=== PATIENT | male | born 1935 | race Caucasian/White ===

== ENCOUNTER 2018-04-12 19:11 | Inpatient (IN) ==
--- NOTE | 2018-04-12 19:20 | Emergency Department Note ---
ED Disposition Condition on Discharge: Serious - Critical Care Critical Care Time: Yes Total Critical Care Time: 40 Vital system(s) involved:: Respiratory Failure My critical care processes included: Assessment & monitoring of V/S, Initial and Re-exams, Data Review/Interpretation, Coordinating Care, Medication Orders and management, Documentation <SammyGary mai - Last Filed: 04/12/18 19:59> <Andrei Yepez - Last Filed: 04/12/18 20:30> Clinical Impression: COPD exacerbation Respiratory failure with hypoxia and hypercapnia Qualifiers: Chronicity: acute Qualified Code(s): J96.01 - Acute respiratory failure with hypoxia; J96.02 - Acute respiratory failure with hypercapnia Community acquired pneumonia Qualifiers: Laterality: unspecified laterality Qualified Code(s): J18.9 - Pneumonia, unspecified organism A-fib Qualifiers: Atrial fibrillation type: chronic Qualified Code(s): I48.2 - Chronic atrial fibrillation Disposition: Admitted As Inpatient Referrals: Unruly Lewis [Primary Care Provider] - Attestation: On 04/12/18, the high probability of a clinically significant, sudden or life threatening deterioration of the following system(s) required my full and direct attention, intervention and personal management. The time I documented below is in addition to time spent performing reported procedures but includes the following listed in this critical care notation. Medical Decision Making - Steve Inquiry Pt receiving controlled substance: No - Lab Data Result diagrams: 04/12/18 19:25 - Radiology Data #1 Image(s): Chest Image Reviewed: Yes I reviewed the patient's radiology image <Gary Dejesus - Last Filed: 04/12/18 19:59> - Lab Data Lab results reviewed: Yes: I reviewed the patient's lab results. Result diagrams: 04/12/18 19:25 04/12/18 19:25 - ECG Data Tracing #1 Arrhythmias present: afib Ischemic changes: non-specific ST-T wave changes - Physician Consults Physician Consulted: latanya Reason -: Admission <Andrei Yepez - Last Filed: 04/12/18 20:30> Vital Signs: 04/12/18 19:12 04/12/18 19:42 04/12/18 20:10 Temperature 98.1 F Temperature Source Oral Pulse Rate 85 Pulse Rate [Right Brachial] 94 H 102 H 94 H Respiratory Rate 20 24 24 Blood Pressure [Right Arm] 155/88 103/62 111/63 Blood Pressure Mean [Right Arm] 110 75 79 Blood Pressure Source [Right Arm] Automatic Cuff Automatic Cuff Blood Pressure Position [Right Arm] Sitting Sitting 02 Sat by Pulse Oximetry 73 L 90 L 90 L Oxygen Delivery Method Room Air BiPAP BiPAP Oxygen Flow Rate (LPM) 50 40 04/12/18 20:25 Temperature Temperature Source Pulse Rate 91 H Pulse Rate [Right Brachial] Respiratory Rate Blood Pressure [Right Arm] Blood Pressure Mean [Right Arm] Blood Pressure Source [Right Arm] Blood Pressure Position [Right Arm] 02 Sat by Pulse Oximetry Oxygen Delivery Method Oxygen Flow Rate (LPM) - Lab Data Lab Results 04/12/18 19:18: Specimen Source rt radial, O2 % 40, ABG pH 7.20 L*, ABG pCO2 102.2 H, ABG pO2 90.9, ABG HCO3 39.1 H, ABG Total CO2 42.3 H, ABG O2 Saturation 96, ABG Base Excess 11.1 H, Josh Test acceptable, PEEP 16/8 04/12/18 19:25: WBC 7.0, RBC 4.87, Hgb 14.2, Hct 49.2, MCV 101.0 H, MCH 29.1, MCHC 28.8 L, RDW 14.7, Plt Count 104 L, MPV 8.1, Neut % (Auto) 73.7, Lymph % ( Auto) 13.2, [place] % (Auto) 11.0 H, Eos % (Auto) 1.4, Baso % (Auto) 0.8, Neut # ( Auto) 5.1, Lymph # (Auto) 0.9, [place] # (Auto) 0.8, Eos # (Auto) 0.1, Baso # (Auto ) 0.1 04/12/18 19:25: Sodium 139, Potassium 4.4, Chloride 98, Carbon Dioxide 42 H*, Anion Gap 3.4 L, BUN 20 H, Creatinine 0.83, Estimated Creat Clear 82, Estimated GFR 89, Est GFR ( Amer) 108, Glucose 110 H, Calcium 9.3, Total Bilirubin 1.2 H, AST 17, ALT 22, Alkaline Phosphatase 75, Troponin I < 0.02, Total Protein 7.8, Albumin 3.6, Globulin 4.2 H, Albumin/Globulin Ratio 0.9 L 04/12/18 19:25: B-Natriuretic Peptide 285 H 04/12/18 19:25: Lactic Acid 0.8 04/12/18 19:25: PT 17.5 H, INR 1.61 H Orders (Tests/Meds): ED MEDICATIONS Generic Name Dose Route Start Last Admin Trade Name Freq PRN Reason Stop Dose Admin Ceftriaxone Sodium 1 gm/ 50 mls @ 100 mls/hr 04/12/18 20:00 04/12/18 20:06 Sodium Chloride IV 04/26/18 19:59 100 mls/hr Q24H THANH Administration Protocol Azithromycin 500 mg/ Sodium 250 mls @ 250 mls/hr 04/12/18 20:00 04/12/18 20: 21 Chloride IV 04/26/18 19:59 250 mls/hr Q24H THANH Administration Protocol Discontinued Medications Generic Name Dose Route Start Last Admin Trade Name Freq PRN Reason Stop Dose Admin Albuterol/Ipratropium 3 ml 04/12/18 19:18 04/12/18 19:22 Duoneb 3ml [facility] 04/12/18 19:19 3 ml ONCE ONE Administration Methylprednisolone Sodium Succinate 125 mg 04/12/18 19:17 04/12/18 19:15 Solu-Medrol 125mg/2ml Vial IV 04/12/18 19:18 125 mg ONCE ONE Administration Sodium Chloride 3 ml 04/12/18 19:51 04/12/18 20:24 Sodium Chloride 3% 15ml [facility] 04/12/18 19:52 3 ml ONCE ONE Administration ORDERS Category Date Time Status XR chest portable Stat Exams 04/12/18 19:19 Taken Upper Respiratory Panel, PCR Stat Lab 04/12/18 19:25 Received Blood Culture Stat Micro 04/12/18 19:12 Ordered Blood Culture Stat Micro 04/12/18 19:12 Ordered Sputum Culture & Gram Stain Stat Micro 04/12/18 19:51 Ordered - Radiology Data #1 Bibasilar infiltrates, no effusion seen. No venous congestion seen. (Gary Dejesus) - ECG Data Tracing #1 EKG interpreted by Gary Dejesus MD: Rhythm: Atrial fibrillation Rate: 103 [place]: normal Ectopy: none Conduction: normal ST Segment Changes: none T Wave Changes: none Q Waves: none No evidence of acute ischemia or injury Baseline artifact and wander present, but I consider the EKG adequate for accurate interpretation. No prior EKGs available for comparison (Gary Dejesus) Medical Decision Narrative: 8:00 PM: At shift change, I have discussed the patient with Dr. Yepez, who will assume care of the patient at this time. I have discussed all clinical information including history, physical and diagnostic study results. Preliminary diagnoses based on information available at this point have been recorded by me. Controlled substance administration and critical care statement are also preliminary, as of the time of handoff. (Gary Dejesus) General Adult HPI - General Mode of Arrival: EMS Limitations: Physical Limitations Description of Symptoms (Recalled from ER Triage Doc. by RN): Brought in by EMS for shortness of breath. Oxygen saturations on room air 73%. EMS reports that patient was on 2.5L NC at home when they arrived, and gave a breathing tx. <Gary Dejesus - Last Filed: 04/12/18 19:59> <Andrei Yepez - Last Filed: 04/12/18 20:30> - General Chief complaint: Shortness of Breath/Dyspnea Stated complaint: shortness of air Time Seen by Provider: 04/12/18 19:12 - History of Present Illness HPI narrative: Hypoxia on arrival. Increasing shortness of air for 3-4 days. Productive cough. Feels hot and cold , but no documented fever. Denies chest pain. History of COPD, on oxygen at home, 2.5 L. On nebulizer treatments and inhalers. Does not know whether he is on antibiotics. Smokes, but did not smoke today. Primary care physician is in [facility]. Patient believes that he has allergy to penicillin, which makes him swell. To his best recollection he does not think he has been admitted to the hospital in the past 3 months. Patient appears to have intact decision-making capacity and expresses wishes for no intubation, no CPR, DNR. (Gary Dejesus) - Related Data Home Medications Medication Instructions Recorded Confirmed Aspirin [Aspirin 81mg chewable 81 mg PO DAILY 04/12/18 04/12/18 tab] B12/Levomefolate Calcium/B-6 1 each PO DAILY 04/12/18 04/12/18 [Foltx Tablet] Calcium Carbonate [Oscal-500 500 mg PO BID 04/12/18 04/12/18 tablet] Carvedilol [Carvedilol 3.125mg Tab] 3.125 mg PO BID 04/12/18 04/12/18 Ergocalciferol (Vitamin D2) 400 unit PO DAILY 04/12/18 04/12/18 [Vitamin D] Ferrous Sulfate, Dried [Iron 160mg 160 mg PO DAILY 04/12/18 04/12/18 ER Tab] Furosemide [Lasix 20mg tab] 20 mg PO DAILY 04/12/18 04/12/18 Hydrocodone/Acetaminophen [Lortab 1 tab PO Q6HP PRN 04/12/18 04/12/18 10/325mg tablet] Lisinopril [Lisinopril 5mg Tablet] 5 mg PO DAILY 04/12/18 04/12/18 Multivit-Min/FA/Lycopen/Lutein 1 each PO DAILY 04/12/18 04/12/18 [Centrum Silver Tablet] Pravastatin Sodium [Pravachol 40mg 40 mg PO PM 04/12/18 04/12/18 Tablet] Warfarin Sodium [Coumadin 2mg 6 mg PO DAILY 04/12/18 04/12/18 tablet] Allergies Allergy/AdvReac Type Severity Reaction Status Date / Time Penicillins Allergy Intermediate Difficulty Verified 04/12/18 19:20 Breathing [facility] History I have reviewed the patient's past medical history: Yes <Gary Dejesus - Last Filed: 04/12/18 19:59> ROS Obtained: Yes All systems reviewed & no additional complaints - Constitutional Constitutional: Reports chills, Denies fever(s) - Cardiovascular Cardiovascular: Denies chest pain - Respiratory Respiratory: Yes cough, Yes dyspnea, Yes excessive phlegm production, Yes wheezing - Gastrointestinal Gastrointestingal: Denies: vomiting <Gary Dejesus - Last Filed: 04/12/18 19:59> Physical Exam - General General appearance: alert, in distress - Head Head exam: atraumatic, normocephalic, normal inspection - Eye Eye exam: Present: normal appearance, PERRL, EOMI - ENT ENT exam: Present: normal exam, normal oropharynx, mucous membranes moist, TM's normal bilaterally, normal external ear exam - Neck Neck exam: Present: normal inspection, full ROM, trachea midline. Absent: meningismus, lymphadenopathy - Chest Chest inspection: Present: normal inspection, symmetric chest wall rise. Absent : tenderness - Respiratory Respiratory exam: Present: respiratory distress, wheezes, prolonged expiratory phase - Cardiovascular Cardiovascular exam: Present: regular rate, normal rhythm. Absent: JVD - Abdominal Exam Abdominal exam: Present: soft, normal bowel sounds. Absent: distention, tenderness, guarding - Extremities Exam Extremities exam: Present: normal inspection, full ROM, normal capillary refill , pedal edema (1+ pitting edema of legs and feet). Absent: calf tenderness - Back Exam Back exam: Present: normal inspection. Absent: tenderness - Neurological Exam Neurological exam: Present: alert, oriented X3 - Psychiatric Psychiatric exam: Present: anxious - Skin Skin exam: Present: warm, dry, intact, normal color - Lymphatic Lymphatic Findings: no adenopathy <Gary Dejesus - Last Filed: 04/12/18 19:59>
[2018-04-12 19:35] LABS: ABG Base Excess 11.1 mmol/L (-2.4-2.3); ABG HCO3 39.1 mmhg (22.0-26.0); ABG Oxygen Saturation 96 % (90-100); ABG PO2 90.9 mmhg (80-100); ABG TCO2 42.3 mmhg (23-27)
[2018-04-12 19:37] LABS: Allen's Test acceptable; Oxygen 40 %; PEEP 16/8
[2018-04-12 19:38] LABS: ABG PCO2 102.2 mmhg (35.0-45.0)
[2018-04-12 19:44] LABS: Coronavirus 229E Not Detected (NotDetected); Coronavirus NL63 Not Detected (NotDetected); Coronavirus OC43 Not Detected (NotDetected); Coronovirus HKU1,PCR Not Detected (NotDetected)
[2018-04-12 19:48] LABS: Basophils # 0.1 K/mm3 (0-0.2); Basophils % 0.8 % (0.1-2.0); Eosinophils # 0.1 K/mm3 (0.0-0.4); Eosinophils % 1.4 % (0.1-12.0); Hematocrit 49.2 % (42.0-52.0); Hemoglobin 14.2 g/dL (14.1-18.0); Lymphocytes # 0.9 K/mm3 (0.7-4.5); Lymphocytes % 13.2 K/mm3 (10-50); Mean Corpuscular HGB Conc 28.8 g/dL (31.8-35.4); Mean Corpuscular Hemoglobin 29.1 pg (27.0-31.2); Mean Platelet Volume 8.1 fl (7.4-10.4); Monocytes # 0.8 K/mm3 (0.1-1.0); Neutrophils # 5.1 K/mm3 (1.8-7.8); Neutrophils % 73.7 % (37.0-80.0); Platelet Count 104 K/mm3 (142-424); Red Blood Count 4.87 M/mm3 (4.60-6.20); Red Cell Distribution Width 14.7 % (11.5-17.5)
[2018-04-12 19:50] LABS: INR 1.61 (0.9-1.1); Prothrombin Time 17.5 seconds (9.4-11.8)
[2018-04-12 19:58] LABS: Alanine Aminotransferase 22 U/L (12-78); Albumin Level 3.6 gm/dL (3.4-5.0); Albumin/Globulin Ratio 0.9 (1.1-1.8); Alkaline Phosphatase 75 U/L (46-116); Anion Gap 3.4 mEq/L (5-15); Aspartate Amino Transferase 17 U/L (15-37); Bilirubin,Total 1.2 mg/dL (0.2-1.0); Blood Urea Nitrogen 20 mg/dL (7-18); Calcium 9.3 mg/dL (8.5-10.1); Chloride 98 mmol/L (98-107); Globulin 4.2 gm/dl (1.3-3.2); Glucose 110 mg/dL (74-106); Potassium 4.4 mmoL/L (3.5-5.1); Sodium 139 mmol/L (136-145); Total Protein,Serum 7.8 gm/dL (6.4-8.2)
[2018-04-12 20:02] LABS: Carbon Dioxide 42 mmol/L (21.0-32.0)
[2018-04-12 22:53] LABS: ABG Base Excess 10.9 mmol/L (-2.4-2.3); ABG HCO3 38.3 mmhg (22.0-26.0); ABG Oxygen Saturation 88 % (90-100); ABG PH 7.24 mmol/L (7.35-7.45); ABG PO2 57.7 mmhg (80-100); ABG TCO2 41.1 mmhg (23-27)
[2018-04-12 22:55] LABS: Allen's Test acceptable; Oxygen 40 %; PEEP 16/8
[2018-04-12 22:56] LABS: ABG PCO2 91.7 mmhg (35.0-45.0)
[2018-04-13 01:15] LABS: ABG Base Excess 9.1 mmol/L (-2.4-2.3); ABG Oxygen Saturation 93 % (90-100); ABG PH 7.21 mmol/L (7.35-7.45); ABG PO2 75.3 mmhg (80-100); ABG TCO2 39.8 mmhg (23-27)
[2018-04-13 01:20] LABS: Oxygen 50 %; PEEP 16/10
[2018-04-13 01:21] LABS: ABG PCO2 93.9 mmhg (35.0-45.0); Allen's Test ACCEPTABLE
[2018-04-13 05:08] LABS: Basophils % 0.1 % (0.1-2.0); Eosinophils % 0.4 % (0.1-12.0); Hematocrit 44.7 % (42.0-52.0); Lymphocytes # 0.5 K/mm3 (0.7-4.5); Lymphocytes % 8.7 K/mm3 (10-50); Mean Corpuscular Hemoglobin 29.7 pg (27.0-31.2); Mean Corpuscular Volume 102.4 fl (80-94); Mean Platelet Volume 8.4 fl (7.4-10.4); Monocytes # 0.2 K/mm3 (0.1-1.0); Monocytes % 2.8 % (1.7-9.3); Neutrophils # 4.8 K/mm3 (1.8-7.8); Platelet Count 80 K/mm3 (142-424); Red Blood Count 4.37 M/mm3 (4.60-6.20); Red Cell Distribution Width 14.7 % (11.5-17.5); White Blood Count 5.4 K/mm3 (4.8-10.8)
[2018-04-13 05:11] LABS: INR 1.48 (0.9-1.1); Prothrombin Time 16.1 seconds (9.4-11.8)
[2018-04-13 05:44] LABS: Lymphocytes % 5 % (10-50); Monocytes % 1 % (2-9); Neutrophils % 94 % (42-76); Total Cells Counted 100
[2018-04-13 05:45] LABS: Hypochromasia 1+
[2018-04-13 06:22] LABS: ABG Base Excess 9.6 mmol/L (-2.4-2.3); ABG HCO3 36.3 mmhg (22.0-26.0); ABG Oxygen Saturation 93 % (90-100); ABG PH 7.29 mmol/L (7.35-7.45); ABG PO2 71.3 mmhg (80-100); ABG TCO2 38.7 mmhg (23-27)
[2018-04-13 06:23] LABS: Allen's Test ACCEPTABLE; Oxygen 50 %; Tidal Volume BIPAP 20/10
[2018-04-13 06:25] LABS: ABG PCO2 78.1 mmhg (35.0-45.0)
--- NOTE | 2018-04-13 08:14 | History & Physical Report ---
*Admission Date: 04/13/18 *Chief complaint: SOA, cough *History of present illness: Mr. Roque is an 82yo male patient of Dr. Lewis. He is currently on BiPAP and it is difficult for him to speak, therefore some of this history is taken from the ER note. Apparently he was hypoxic upon arrival to the emergency room. He had had increasing shortness of air for 3-4 days with a productive cough. He felt hot but there was no documented fever. He denied any chest pain. He has a history of COPD and is on home oxygen at 2.5 L. He also uses nebulizer treatments and inhalers. He does continue to smoke. She was evaluated in the emergency room and found to have a pneumonia. He was hypoxic and hypercapnic. He was admitted and started on BiPAP. He did express wishes to the ER physician for no intubation and no CPR. He wanted to be a DNR. [facility] History Medical History: Reports:: Arrhythmia, Atrial Fibrillation, Congestive Heart Failure, Hyperlipidemia, Hypertension, Myocardial Infarction Denies:: Cancer, Diabetes Mellitus Type 1, Diabetes Mellitus Type 2, MRSA Other Surgeries: Yes: Colonoscopy Amputation: No Fractures: Yes (left arm) - *Social History Educational Level: Completed Grade School Smoking Status: Current every day smoker Tobacco Type: cigarettes Alcohol Intake: never Occupational Status: retired Housing: house - Psychiatric History Expresses thoughts of harming self/others: None Suicide Plan Description: No Plan *Family Hx:: Unable to obtain Review of Systems - Constitutional Reports weakness, Denies body ache(s), Denies headache(s) - Eyes Denies blurry vision, Denies double vision - ENT Reports nasal congestion, Denies sore throat - *Cardiovascular Denies chest pain, Denies leg swelling - *Respiratory Reports chest congestion, Reports cough, Reports shortness of breath, Reports wheezing - *Gastrointestinal Denies abdominal pain, Denies loose stools, Denies nausea, Denies vomiting - *Genitourinary Denies difficulty urinating, Denies painful urination - *Musculoskeletal Denies joint pain, Denies body aches - *Neurologic Reports weakness, Denies headache(s), Denies dizziness Meds Home Medications Medication Instructions Recorded Confirmed Type Aspirin [Aspirin 81mg chewable 81 mg PO DAILY 04/12/18 04/12/18 History tab] B12/Levomefolate Calcium/B-6 1 each PO DAILY 04/12/18 04/12/18 History [Foltx Tablet] Calcium Carbonate [Oscal-500 500 mg PO BID 04/12/18 04/12/18 History tablet] Calcium Carbonate/Vitamin D3 1 each PO DAILY 04/12/18 04/12/18 History [[place] 500-Vit D3 200 Caplet] Carvedilol [Carvedilol 3.125mg Tab] 3.125 mg PO BID 04/12/18 04/12/18 History Ergocalciferol (Vitamin D2) 400 unit PO DAILY 04/12/18 04/12/18 History [Vitamin D] Furosemide [Lasix 20mg tab] 20 mg PO DAILY 04/12/18 04/12/18 History Hydrocodone/Acetaminophen 1 each PO HS 04/12/18 04/12/18 History [Hydrocodone-Acetamin 10-325 mg] Lisinopril [Lisinopril 5mg Tablet] 5 mg PO DAILY 04/12/18 04/12/18 History Multivit-Min/FA/Lycopen/Lutein 1 each PO BID 04/12/18 04/12/18 History [Centrum Silver Tablet] Multivit-Min/FA/Lycopen/Lutein 1 each PO DAILY 04/12/18 04/12/18 History [Centrum Silver Tablet] Pravastatin Sodium [Pravachol 40mg 40 mg PO PM 04/12/18 04/12/18 History Tablet] Warfarin Sodium [Coumadin 2mg 6 mg PO DAILY 04/12/18 04/12/18 History tablet] Allergies Allergy/AdvReac Type Severity Reaction Status Date / Time Penicillins Allergy Intermediate Difficulty Verified 04/12/18 19:20 Breathing Exam Vital signs and Labs for Last 24 Hours: Temp Pulse Resp BP Pulse Ox 98.8 F 84 22 104/76 95 04/13/18 04:00 04/13/18 06:00 04/13/18 04:00 04/13/18 06:00 04/13/18 06:00 Laboratory Results - last 24 hr 04/12/18 19:18: Specimen Source rt radial, O2 % 40, ABG pH 7.20 L*, ABG pCO2 102.2 H, ABG pO2 90.9, ABG HCO3 39.1 H, ABG Total CO2 42.3 H, ABG O2 Saturation 96, ABG Base Excess 11.1 H, Josh Test acceptable, PEEP 16/8 04/12/18 19:25: WBC 7.0, RBC 4.87, Hgb 14.2, Hct 49.2, MCV 101.0 H, MCH 29.1, MCHC 28.8 L, RDW 14.7, Plt Count 104 L, MPV 8.1, Neut % (Auto) 73.7, Lymph % ( Auto) 13.2, [place] % (Auto) 11.0 H, Eos % (Auto) 1.4, Baso % (Auto) 0.8, Neut # ( Auto) 5.1, Lymph # (Auto) 0.9, [place] # (Auto) 0.8, Eos # (Auto) 0.1, Baso # (Auto ) 0.1 04/12/18 19:25: Sodium 139, Potassium 4.4, Chloride 98, Carbon Dioxide 42 H*, Anion Gap 3.4 L, BUN 20 H, Creatinine 0.83, Estimated Creat Clear 82, Estimated GFR 89, Est GFR ( Amer) 108, Glucose 110 H, Calcium 9.3, Total Bilirubin 1.2 H, AST 17, ALT 22, Alkaline Phosphatase 75, Troponin I < 0.02, Total Protein 7.8, Albumin 3.6, Globulin 4.2 H, Albumin/Globulin Ratio 0.9 L 04/12/18 19:25: B-Natriuretic Peptide 285 H 04/12/18 19:25: Chlamy pneumoniae PCR Not detected, Adenovirus (PCR) Not detected, B.parapertussis DNA PCR Not detected, Coronavirus OC43 (PCR) Not detected, Coronavirus HKU1 (PCR) Not detected, Coronavirus 229E (PCR) Not detected, Coronavirus NL63 (PCR) Not detected, Human Metapneumovir PCR Not detected, Influenza A (H1) PCR Not detected, Influ A (H1N1/09) PCR Not detected , Influenza A (H3) PCR Not detected, Influenza Type A (PCR) Not detected, Influenza Type B (PCR) Not detected, M. pneumoniae (PCR) Not detected, Parainfluenza 1 (PCR) Not detected, Parainfluenza 2 (PCR) Not detected, Parainfluenza 3 (PCR) Not detected, Parainfluenza 4 (PCR) Not detected, RSV (PCR ) Not detected, Entero/Rhino (PCR) Not detected 04/12/18 19:25: Lactic Acid 0.8 04/12/18 19:25: PT 17.5 H, INR 1.61 H 04/12/18 22:00: Specimen Source rt radial, O2 % 40, ABG pH 7.24 L*, ABG pCO2 91.7 H, ABG pO2 57.7 L, ABG HCO3 38.3 H, ABG Total CO2 41.1 H, ABG O2 Saturation 88 L, ABG Base Excess 10.9 H, Josh Test acceptable, PEEP 16/8 04/12/18 22:20: Troponin I < 0.02 04/13/18 01:00: Specimen Source Rt radial, O2 % 50, ABG pH 7.21 L*, ABG pCO2 93.9 H, ABG pO2 75.3 L, ABG HCO3 37.0 H, ABG Total CO2 39.8 H, ABG O2 Saturation 93, ABG Base Excess 9.1 H, Josh Test Acceptable, PEEP 16/10 04/13/18 01:15: Troponin I < 0.02 04/13/18 04:30: Troponin I < 0.02 04/13/18 04:30: WBC 5.4, RBC 4.37 L, Hgb 13.0 L, Hct 44.7, MCV 102.4 H, MCH 29.7 , MCHC 29.0 L, RDW 14.7, Plt Count 80 L, MPV 8.4, Neut % (Auto) 88.0 H, Lymph % (Auto) 8.7 L, [place] % (Auto) 2.8, Eos % (Auto) 0.4, Baso % (Auto) 0.1, Neut # ( Auto) 4.8, Lymph # (Auto) 0.5 L, [place] # (Auto) 0.2, Eos # (Auto) 0.0, Baso # ( Auto) 0.0, Total Counted 100, Neutrophils % (Manual) 94 H, Lymphocytes % (Manual ) 5 L, Monocytes % (Manual) 1 L, Platelet Estimate Slight decrease, Hypochromasia 1+, Anisocytosis 1+ 04/13/18 04:30: PT 16.1 H, INR 1.48 H 04/13/18 04:30: Sodium 139, Potassium 5.0, Chloride 100, Carbon Dioxide 38 H, Anion Gap 6.0, BUN 24 H, Creatinine 0.85, Estimated Creat Clear 82, Estimated GFR 87, Est GFR ( Amer) 105, Glucose 122 H, Magnesium 1.9 04/13/18 06:19: Specimen Source L. radial, O2 % 50, ABG pH 7.29 L, ABG pCO2 78.1 H, ABG pO2 71.3 L, ABG HCO3 36.3 H, ABG Total CO2 38.7 H, ABG O2 Saturation 93, ABG Base Excess 9.6 H, Josh Test Acceptable, Vent Rate 20, Tidal Volume Bipap 20/10 I & O for Last 24 hours: Intake & Output 04/10/18 04/11/18 04/12/18 04/13/18 11:59 11:59 11:59 11:59 Intake Total 716 / 716 Balance 716 / 716 Weight 217 lb 15.995 oz Microbiology Reports for the Last 24 Hours: Microbiology 04/12/18 00:00 Sputum - Expectorated Sputum Gram Stain - Final - Constitutional no acute distress Comments: difficulty talking with BIPAP in place - *Routine HEENT Exam Head: Present: normocephalic, atraumatic Eye: Present: EOMI, PERRL ENT: Present: mucous membranes dry - *Routine Neck Exam Present: supple, full ROM - *Routine Respiratory Exam Present: rales (bibasilar), wheezes (faint). Absent: rhonchi - *Routine Cardiovascular Exam Present: irregularly irregular - *Routine Abdominal Exam Present: soft, normoactive bowel sounds. Absent: tenderness - *Routine Extremities Exam Present: edema (trace) - *Routine Skin Exam Present: intact - *Routine Neurological Exam Present: alert H&P: Result - Labs Labs: - Impressions CXR - COPD with bibasilar infiltrates and small bilateral effusions with chronic change in cardiomegaly Assessment and Plan (1) Respiratory failure with hypoxia and hypercapnia Current visit: Yes Status: Acute Qualifiers: Chronicity: acute Qualified Code(s): J96.01 - Acute respiratory failure with hypoxia; J96.02 - Acute respiratory failure with hypercapnia Category: Medical Code(s): J96.91 - Respiratory failure, unspecified with hypoxia; J96.92 - Respiratory failure, unspecified with hypercapnia (2) Community acquired pneumonia Current visit: Yes Status: Acute Qualifiers: Laterality: unspecified laterality Qualified Code(s): J18.9 - Pneumonia, unspecified organism Category: Medical Code(s): J18.9 - Pneumonia, unspecified organism (3) COPD exacerbation Current visit: Yes Status: Acute Category: Medical Code(s): J44.1 - Chronic obstructive pulmonary disease with (acute) exacerbation (4) A-fib Current visit: Yes Status: Chronic Qualifiers: Atrial fibrillation type: chronic Qualified Code(s): I48.2 - Chronic atrial fibrillation Category: Medical Code(s): I48.91 - Unspecified atrial fibrillation (5) Hypertension Current visit: Yes Status: Chronic Category: Medical Code(s): I10 - Essential (primary) hypertension (6) Hyperlipidemia Current visit: Yes Status: Chronic Category: Medical Code(s): E78.5 - Hyperlipidemia, unspecified - Assessment and plan all Dx Assessment and Plan for all problems:: He has been started on antibiotics, nebs, and steroids. BiPAP was placed due to hypercapnia. His CO2 has decreased but is still 78.1. Will await blood and sputum cultures and discuss further care with Dr. pelaez.
--- NOTE | 2018-04-13 09:23 | Pharmacy Consult Notes ---
[facility] Pharmacy VTE Monitoring - Patient Demographics Admission date: 04/12/18 Report Date: 04/13/18 Time: 09:23 Allergies/Adverse Reactions: Patient Allergies Penicillins Allergy (Intermediate, Verified 04/12/18 19:20) Difficulty Breathing Height: 1.83 cm Weight: 98.883 kg Patient Problems: Current Active Problems Respiratory failure with hypoxia and hypercapnia (Acute) Community acquired pneumonia (Acute) COPD exacerbation (Acute) A-fib (Chronic) Hypertension (Chronic) Hyperlipidemia (Chronic) - VTE Risk Labs: VTE Related Lab Results Hgb 13.0 g/dL (14.1-18.0) L 04/13/18 04:30 Hct 44.7 % (42.0-52.0) 04/13/18 04:30 Plt Count 80 K/mm3 (142-424) L 04/13/18 04:30 PT 16.1 seconds (9.4-11.8) H 04/13/18 04:30 INR 1.48 (0.9-1.1) H 04/13/18 04:30 BUN 24 mg/dL (7-18) H 04/13/18 04:30 Creatinine 0.85 mg/dL (0.70-1.30) 04/13/18 04:30 Estimated Creat Clear 82 mL/min (0-300) 04/13/18 04:30 VTE Score: 9 VTE Risk Level: Moderate Risk - Prophylaxis VTE Prophylaxis Ordered?: Yes Types of VTE Prophylaxis: Pharmacological Pharmacologic Type: Warfarin - VTE Diagnosis Confirmed Treatment or plan recommended: Continue Current Treatment
--- NOTE | 2018-04-13 18:26 | Progress Note ---
Internal Medicine - PN: Subj *Date: 04/13/18 *Time: 18:21 Interval history: The patient is quite alert this evening as opposed to this morning. He did have his BiPAP off to eat but the saturations would drop into the 80s. It sounds like he is moving air better on auscultation. He complains that he has had a sore throat going on for weeks and weeks but has not been able to get any diagnosis or treatment regarding the symptoms. Exam Vital signs and Labs for Last 24 Hours: Temp Pulse Resp BP Pulse Ox 99.0 F 70 20 100/60 93 L 04/13/18 18:00 04/13/18 18:00 04/13/18 18:00 04/13/18 18:00 04/13/18 18:00 Laboratory Results - last 24 hr 04/12/18 19:18: Specimen Source rt radial, O2 % 40, ABG pH 7.20 L*, ABG pCO2 102.2 H, ABG pO2 90.9, ABG HCO3 39.1 H, ABG Total CO2 42.3 H, ABG O2 Saturation 96, ABG Base Excess 11.1 H, Josh Test acceptable, PEEP 16/8 04/12/18 19:25: WBC 7.0, RBC 4.87, Hgb 14.2, Hct 49.2, MCV 101.0 H, MCH 29.1, MCHC 28.8 L, RDW 14.7, Plt Count 104 L, MPV 8.1, Neut % (Auto) 73.7, Lymph % ( Auto) 13.2, Brewster % (Auto) 11.0 H, Eos % (Auto) 1.4, Baso % (Auto) 0.8, Neut # ( Auto) 5.1, Lymph # (Auto) 0.9, Brewster # (Auto) 0.8, Eos # (Auto) 0.1, Baso # (Auto ) 0.1 04/12/18 19:25: Sodium 139, Potassium 4.4, Chloride 98, Carbon Dioxide 42 H*, Anion Gap 3.4 L, BUN 20 H, Creatinine 0.83, Estimated Creat Clear 82, Estimated GFR 89, Est GFR ( Amer) 108, Glucose 110 H, Calcium 9.3, Total Bilirubin 1.2 H, AST 17, ALT 22, Alkaline Phosphatase 75, Troponin I < 0.02, Total Protein 7.8, Albumin 3.6, Globulin 4.2 H, Albumin/Globulin Ratio 0.9 L 04/12/18 19:25: B-Natriuretic Peptide 285 H 04/12/18 19:25: Chlamy pneumoniae PCR Not detected, Adenovirus (PCR) Not detected, B.parapertussis DNA PCR Not detected, Coronavirus OC43 (PCR) Not detected, Coronavirus HKU1 (PCR) Not detected, Coronavirus 229E (PCR) Not detected, Coronavirus NL63 (PCR) Not detected, Human Metapneumovir PCR Not detected, Influenza A (H1) PCR Not detected, Influ A (H1N1/09) PCR Not detected , Influenza A (H3) PCR Not detected, Influenza Type A (PCR) Not detected, Influenza Type B (PCR) Not detected, M. pneumoniae (PCR) Not detected, Parainfluenza 1 (PCR) Not detected, Parainfluenza 2 (PCR) Not detected, Parainfluenza 3 (PCR) Not detected, Parainfluenza 4 (PCR) Not detected, RSV (PCR ) Not detected, Entero/Rhino (PCR) Not detected 04/12/18 19:25: Lactic Acid 0.8 04/12/18 19:25: PT 17.5 H, INR 1.61 H 04/12/18 22:00: Specimen Source rt radial, O2 % 40, ABG pH 7.24 L*, ABG pCO2 91.7 H, ABG pO2 57.7 L, ABG HCO3 38.3 H, ABG Total CO2 41.1 H, ABG O2 Saturation 88 L, ABG Base Excess 10.9 H, Josh Test acceptable, PEEP 16/8 04/12/18 22:20: Troponin I < 0.02 04/13/18 01:00: Specimen Source Rt radial, O2 % 50, ABG pH 7.21 L*, ABG pCO2 93.9 H, ABG pO2 75.3 L, ABG HCO3 37.0 H, ABG Total CO2 39.8 H, ABG O2 Saturation 93, ABG Base Excess 9.1 H, Josh Test Acceptable, PEEP 16/10 04/13/18 01:15: Troponin I < 0.02 04/13/18 04:30: Troponin I < 0.02 04/13/18 04:30: WBC 5.4, RBC 4.37 L, Hgb 13.0 L, Hct 44.7, MCV 102.4 H, MCH 29.7 , MCHC 29.0 L, RDW 14.7, Plt Count 80 L, MPV 8.4, Neut % (Auto) 88.0 H, Lymph % (Auto) 8.7 L, Brewster % (Auto) 2.8, Eos % (Auto) 0.4, Baso % (Auto) 0.1, Neut # ( Auto) 4.8, Lymph # (Auto) 0.5 L, Brewster # (Auto) 0.2, Eos # (Auto) 0.0, Baso # ( Auto) 0.0, Total Counted 100, Neutrophils % (Manual) 94 H, Lymphocytes % (Manual ) 5 L, Monocytes % (Manual) 1 L, Platelet Estimate Slight decrease, Hypochromasia 1+, Anisocytosis 1+ 04/13/18 04:30: PT 16.1 H, INR 1.48 H 04/13/18 04:30: Sodium 139, Potassium 5.0, Chloride 100, Carbon Dioxide 38 H, Anion Gap 6.0, BUN 24 H, Creatinine 0.85, Estimated Creat Clear 82, Estimated GFR 87, Est GFR ( Amer) 105, Glucose 122 H, Magnesium 1.9 04/13/18 06:19: Specimen Source L. radial, O2 % 50, ABG pH 7.29 L, ABG pCO2 78.1 H, ABG pO2 71.3 L, ABG HCO3 36.3 H, ABG Total CO2 38.7 H, ABG O2 Saturation 93, ABG Base Excess 9.6 H, Josh Test Acceptable, Vent Rate 20, Tidal Volume Bipap 20/10 I & O for Last 24 hours: Intake & Output 04/11/18 04/12/18 04/13/18 04/14/18 11:59 11:59 11:59 11:59 Intake Total 716 / 716 921 / 921 Output Total 900 / 900 Balance 716 / 716 Weight 217 lb 15.995 oz Microbiology Reports for the Last 24 Hours: Microbiology 04/12/18 00:00 Sputum - Expectorated Sputum Gram Stain - Final Assessment and Plan (1) Respiratory failure with hypoxia and hypercapnia Current visit: Yes Status: Acute Qualifiers: Chronicity: acute Qualified Code(s): J96.01 - Acute respiratory failure with hypoxia; J96.02 - Acute respiratory failure with hypercapnia Category: Medical Code(s): J96.91 - Respiratory failure, unspecified with hypoxia; J96.92 - Respiratory failure, unspecified with hypercapnia (2) Community acquired pneumonia Current visit: Yes Status: Acute Qualifiers: Laterality: unspecified laterality Qualified Code(s): J18.9 - Pneumonia, unspecified organism Category: Medical Code(s): J18.9 - Pneumonia, unspecified organism (3) COPD exacerbation Current visit: Yes Status: Acute Category: Medical Code(s): J44.1 - Chronic obstructive pulmonary disease with (acute) exacerbation (4) A-fib Current visit: Yes Status: Chronic Qualifiers: Atrial fibrillation type: chronic Qualified Code(s): I48.2 - Chronic atrial fibrillation Category: Medical Code(s): I48.91 - Unspecified atrial fibrillation (5) Hypertension Current visit: Yes Status: Chronic Category: Medical Code(s): I10 - Essential (primary) hypertension (6) Hyperlipidemia Current visit: Yes Status: Chronic Category: Medical Code(s): E78.5 - Hyperlipidemia, unspecified - Assessment and plan all Dx Assessment and Plan for all problems:: See orders. CT of the neck
[2018-04-14 06:05] LABS: Eosinophils % 0.1 % (0.1-12.0); Hematocrit 41.2 % (42.0-52.0); Lymphocytes # 0.4 K/mm3 (0.7-4.5); Lymphocytes % 9.2 K/mm3 (10-50); Mean Corpuscular Hemoglobin 29.1 pg (27.0-31.2); Mean Corpuscular Volume 100.2 fl (80-94); Mean Platelet Volume 7.9 fl (7.4-10.4); Monocytes # 0.3 K/mm3 (0.1-1.0); Monocytes % 6.2 % (1.7-9.3); Neutrophils # 3.7 K/mm3 (1.8-7.8); Neutrophils % 84.5 % (37.0-80.0); Platelet Count 105 K/mm3 (142-424); Red Blood Count 4.11 M/mm3 (4.60-6.20); Red Cell Distribution Width 14.8 % (11.5-17.5); White Blood Count 4.4 K/mm3 (4.8-10.8)
[2018-04-14 06:10] LABS: Anion Gap 3.6 mEq/L (5-15); Potassium 4.6 mmoL/L (3.5-5.1)
--- NOTE | 2018-04-14 08:14 | Progress Note ---
Internal Medicine - PN: Subj *Date: 04/14/18 *Time: 08:11 Interval history: Patient states he does feel better this morning. He is currently on nasal oxygen and has just finished breakfast. He states he is short of breath when his BiPAP is removed. His sats are in the 80s on nasal oxygen. He denies any other pain. States he did sleep well last night Exam Vital signs and Labs for Last 24 Hours: Temp Pulse Resp BP Pulse Ox 98.7 F 85 19 128/74 96 04/13/18 20:00 04/14/18 06:28 04/14/18 00:00 04/14/18 06:00 04/14/18 06:28 Laboratory Results - last 24 hr 04/13/18 01:15: TSH 0.90 04/13/18 04:30: Anisocytosis 04/14/18 05:10: WBC 4.4 L, RBC 4.11 L, Hgb 12.0 L, Hct 41.2 L, MCV 100.2 H, MCH 29.1, MCHC 29.0 L, RDW 14.8, Plt Count 105 L D, MPV 7.9, Neut % (Auto) 84.5 H, Lymph % (Auto) 9.2 L, Woodson % (Auto) 6.2, Eos % (Auto) 0.1, Baso % (Auto) 0.0 L, Neut # (Auto) 3.7, Lymph # (Auto) 0.4 L, Woodson # (Auto) 0.3, Eos # (Auto) 0.0, Baso # (Auto) 0.0 04/14/18 05:10: Sodium 140, Potassium 4.6, Chloride 102, Carbon Dioxide 39 H, Anion Gap 3.6 L, BUN 34 H D, Creatinine 0.89, Estimated Creat Clear 82, Estimated GFR 82, Est GFR ( Amer) 100, Glucose 140 H I & O for Last 24 hours: Intake & Output 04/11/18 04/12/18 04/13/18 04/14/18 11:59 11:59 11:59 11:59 Intake Total 716 / 716 1687 / 1687 Output Total 900 / 900 Balance 716 / 716 787 / 787 Weight 217 lb 15.995 oz - Constitutional no acute distress - *Routine Respiratory Exam Present: decreased breath sounds (but better air movement), wheezes - *Routine Cardiovascular Exam Present: irregularly irregular - *Routine Abdominal Exam Present: soft, normoactive bowel sounds. Absent: tenderness - *Routine Extremities Exam Present: edema Assessment and Plan (1) Respiratory failure with hypoxia and hypercapnia Current visit: Yes Status: Acute Qualifiers: Chronicity: acute Qualified Code(s): J96.01 - Acute respiratory failure with hypoxia; J96.02 - Acute respiratory failure with hypercapnia Category: Medical Code(s): J96.91 - Respiratory failure, unspecified with hypoxia; J96.92 - Respiratory failure, unspecified with hypercapnia (2) Community acquired pneumonia Current visit: Yes Status: Acute Qualifiers: Laterality: unspecified laterality Qualified Code(s): J18.9 - Pneumonia, unspecified organism Category: Medical Code(s): J18.9 - Pneumonia, unspecified organism (3) COPD exacerbation Current visit: Yes Status: Acute Category: Medical Code(s): J44.1 - Chronic obstructive pulmonary disease with (acute) exacerbation (4) A-fib Current visit: Yes Status: Chronic Qualifiers: Atrial fibrillation type: chronic Qualified Code(s): I48.2 - Chronic atrial fibrillation Category: Medical Code(s): I48.91 - Unspecified atrial fibrillation (5) Hypertension Current visit: Yes Status: Chronic Category: Medical Code(s): I10 - Essential (primary) hypertension (6) Hyperlipidemia Current visit: Yes Status: Chronic Category: Medical Code(s): E78.5 - Hyperlipidemia, unspecified - Assessment and plan all Dx Assessment and Plan for all problems:: We will continue current care and await sputum and blood cultures. Patient's BiPAP was replaced by the nurse.
[2018-04-14 10:03] LABS: ABG Base Excess 12.8 mmol/L (-2.4-2.3); ABG HCO3 37.5 mmhg (22.0-26.0); ABG Oxygen Saturation 86 % (90-100); ABG TCO2 39.4 mmhg (23-27)
[2018-04-14 10:05] LABS: Allen's Test Acceptable; Oxygen 32% %
[2018-04-14 10:06] LABS: ABG PCO2 61.4 mmhg (35.0-45.0)
[2018-04-14 10:07] LABS: ABG PO2 49.9 mmhg (80-100)
[2018-04-15 06:24] LABS: INR 1.76 (0.9-1.1); Prothrombin Time 19.1 seconds (9.4-11.8)
--- NOTE | 2018-04-15 14:01 | Progress Note ---
Internal Medicine - PN: Subj *Date: 04/15/18 *Time: 13:57 Interval history: The patient is much improved today. His 2 daughters are in the room with him. He is conversant alert and oriented. Has nasal O2 in place and his sats are over 90%. On auscultation he is moving air better. His color is good. Exam Vital signs and Labs for Last 24 Hours: Temp Pulse Resp BP Pulse Ox 98.1 F 76 18 116/63 94 L 04/15/18 12:00 04/15/18 12:00 04/15/18 12:00 04/15/18 12:00 04/15/18 12:00 Laboratory Results - last 24 hr 04/15/18 06:00: PT 19.1 H, INR 1.76 H Laboratory Tests 04/13/18 04/14/18 04/14/18 01:15 05:10 05:10 WBC 4.4 L Hgb 12.0 L Hct 41.2 L Sodium 140 Potassium 4.6 Chloride 102 BUN 34 H D Creatinine 0.89 TSH 0.90 I & O for Last 24 hours: Intake & Output 04/13/18 04/14/18 04/15/18 04/16/18 11:59 11:59 11:59 11:59 Intake Total 716 / 716 1687 / 1687 1825 / 1825 180 / 180 Output Total 900 / 900 Balance 716 / 716 787 / 787 1825 / 1825 180 / 180 Weight 217 lb 15.995 oz 217 lb 8 oz Microbiology Reports for the Last 24 Hours: Microbiology 04/12/18 00:00 Sputum - Expectorated Sputum Gram Stain - Final 04/12/18 00:00 Sputum - Expectorated Sputum Sputum Culture - Final Serratia marcescens Pseudomonas aeruginosa Haemophilus influenzae 04/12/18 19:12 Blood Blood Culture - Preliminary NO GROWTH AFTER 48 HOURS 04/12/18 19:12 Blood Blood Culture - Preliminary NO GROWTH AFTER 48 HOURS - Constitutional no acute distress Comments: nasal O2 in place - *Routine HEENT Exam Head: Present: normocephalic Eye: Present: PERRL ENT: Present: mucous membranes moist - *Routine Respiratory Exam Comments: moving air better, Still decreased at bases - *Routine Cardiovascular Exam Present: RRR - *Routine Abdominal Exam Present: soft. Absent: tenderness - *Routine Extremities Exam Absent: edema Assessment and Plan (1) Respiratory failure with hypoxia and hypercapnia Current visit: Yes Status: Acute Qualifiers: Chronicity: acute Qualified Code(s): J96.01 - Acute respiratory failure with hypoxia; J96.02 - Acute respiratory failure with hypercapnia Category: Medical Code(s): J96.91 - Respiratory failure, unspecified with hypoxia; J96.92 - Respiratory failure, unspecified with hypercapnia (2) Community acquired pneumonia Current visit: Yes Status: Acute Qualifiers: Laterality: unspecified laterality Qualified Code(s): J18.9 - Pneumonia, unspecified organism Category: Medical Code(s): J18.9 - Pneumonia, unspecified organism (3) COPD exacerbation Current visit: Yes Status: Acute Category: Medical Code(s): J44.1 - Chronic obstructive pulmonary disease with (acute) exacerbation (4) A-fib Current visit: Yes Status: Chronic Qualifiers: Atrial fibrillation type: chronic Qualified Code(s): I48.2 - Chronic atrial fibrillation Category: Medical Code(s): I48.91 - Unspecified atrial fibrillation (5) Hypertension Current visit: Yes Status: Chronic Category: Medical Code(s): I10 - Essential (primary) hypertension (6) Hyperlipidemia Current visit: Yes Status: Chronic Category: Medical Code(s): E78.5 - Hyperlipidemia, unspecified - Assessment and plan all Dx Assessment and Plan for all problems:: March DC from stepdown. Reviewing culture results we will discontinue azithromycin and accordingly add Levaquin.
--- NOTE | 2018-04-16 13:19 | Progress Note ---
Internal Medicine - PN: Subj *Date: 04/16/18 *Time: 13:16 Interval history: He is much improved. He is mainly using nasal O2 though he did use some BiPAP during the night. His sats have remained in the 90 range. He complains of some abdominal discomfort. He states his bowels have moved. He still has rhonchi and wheezes but better air movement overall. Exam Vital signs and Labs for Last 24 Hours: Temp Pulse Resp BP Pulse Ox 98.3 F 104 H 18 124/76 90 L 04/16/18 11:29 04/16/18 11:29 04/16/18 11:29 04/16/18 11:29 04/16/18 11:29 I & O for Last 24 hours: Intake & Output 04/14/18 04/15/18 04/16/18 04/17/18 11:59 11:59 11:59 11:59 Intake Total 1687 / 1687 1825 / 1825 1867 / 1867 Output Total 900 / 900 Balance 787 / 787 1825 / 1825 1867 / 1867 Weight 217 lb 8 oz 223 lb 2 oz - Constitutional no acute distress - *Routine HEENT Exam Head: Present: normocephalic ENT: Present: mucous membranes moist - *Routine Neck Exam Present: supple. Absent: JVD - *Routine Respiratory Exam Comments: Better air movement but rhonchi and wheezes are still present. Diminished at bases. - *Routine Cardiovascular Exam Present: irregular rhythm Comments: 80s-90s - *Routine Abdominal Exam Present: soft. Absent: mass - *Routine Extremities Exam Comments: No significant edema. Varicosities present. Assessment and Plan (1) Respiratory failure with hypoxia and hypercapnia Current visit: Yes Status: Acute Qualifiers: Chronicity: acute Qualified Code(s): J96.01 - Acute respiratory failure with hypoxia; J96.02 - Acute respiratory failure with hypercapnia Category: Medical Code(s): J96.91 - Respiratory failure, unspecified with hypoxia; J96.92 - Respiratory failure, unspecified with hypercapnia (2) Community acquired pneumonia Current visit: Yes Status: Acute Qualifiers: Laterality: unspecified laterality Qualified Code(s): J18.9 - Pneumonia, unspecified organism Category: Medical Code(s): J18.9 - Pneumonia, unspecified organism (3) COPD exacerbation Current visit: Yes Status: Acute Category: Medical Code(s): J44.1 - Chronic obstructive pulmonary disease with (acute) exacerbation (4) A-fib Current visit: Yes Status: Chronic Qualifiers: Atrial fibrillation type: chronic Qualified Code(s): I48.2 - Chronic atrial fibrillation Category: Medical Code(s): I48.91 - Unspecified atrial fibrillation (5) Hypertension Current visit: Yes Status: Chronic Category: Medical Code(s): I10 - Essential (primary) hypertension (6) Hyperlipidemia Current visit: Yes Status: Chronic Category: Medical Code(s): E78.5 - Hyperlipidemia, unspecified - Assessment and plan all Dx Assessment and Plan for all problems:: Check BMP and chest x-ray
[2018-04-16 14:03] LABS: Anion Gap 6.6 mEq/L (5-15); Potassium 4.6 mmoL/L (3.5-5.1)
[2018-04-17 06:10] LABS: INR 2.81 (0.9-1.1); Prothrombin Time 30.7 seconds (9.4-11.8)
--- NOTE | 2018-04-17 08:58 | Progress Note ---
Internal Medicine - PN: Subj *Date: 04/17/18 *Time: 08:55 Interval history: Had 3 episodes of shortness of breath during the night. He also describes some abdominal soreness. Respiratory issues were cleared. He states he looked at the monitor and it showed a 9 8% O2 sat. Has periodic nonproductive cough. He denies chest pain. He has been out of bed in a chair and ate his breakfast this morning. He is eating without difficulty. Bowels are moving. He is voiding QS. Exam Vital signs and Labs for Last 24 Hours: Temp Pulse Resp BP Pulse Ox 97.7 F 99 H 20 136/70 95 04/17/18 08:00 04/17/18 08:00 04/17/18 08:00 04/17/18 08:00 04/17/18 08:00 Laboratory Results - last 24 hr 04/16/18 13:50: Sodium 141, Potassium 4.6, Chloride 102, Carbon Dioxide 37 H, Anion Gap 6.6, BUN 31 H, Creatinine 0.89, Estimated Creat Clear 84, Estimated GFR 82, Est GFR ( Amer) 100, Glucose 184 H 04/17/18 05:00: PT 30.7 H, INR 2.81 H I & O for Last 24 hours: Intake & Output 04/14/18 04/15/18 04/16/18 04/17/18 11:59 11:59 11:59 11:59 Intake Total 1687 / 1687 1825 / 1825 1867 / 1867 1292 / 1292 Output Total 900 / 900 Balance 787 / 787 1825 / 1825 1867 / 1867 1292 / 1292 Weight 217 lb 8 oz 223 lb 2 oz Microbiology Reports for the Last 24 Hours: Sputum culture shows Pseudomonas, H influenza, and Serratia. Radiology Reports for the Last 24 Hours: 04/16/2018 repeat chest x-ray IMPRESSION: Slight progression bilateral lower lobe pneumonia and left-sided effusion - Constitutional no acute distress - *Routine Respiratory Exam Comments: Bilateral expiratory wheezing. Diminished breath sounds posteriorly, especially in the bases. - *Routine Cardiovascular Exam Present: irregular rhythm (Monitor showing atrial fibrillation.) - *Routine Abdominal Exam Present: soft, normoactive bowel sounds, tenderness (Across lower abdomen) - *Routine Extremities Exam Absent: edema, calf tenderness - *Routine Neurological Exam Present: alert, oriented X3 Assessment and Plan (1) Respiratory failure with hypoxia and hypercapnia Current visit: Yes Status: Acute Qualifiers: Chronicity: acute Qualified Code(s): J96.01 - Acute respiratory failure with hypoxia; J96.02 - Acute respiratory failure with hypercapnia Category: Medical Code(s): J96.91 - Respiratory failure, unspecified with hypoxia; J96.92 - Respiratory failure, unspecified with hypercapnia (2) Community acquired pneumonia Current visit: Yes Status: Acute Qualifiers: Laterality: unspecified laterality Qualified Code(s): J18.9 - Pneumonia, unspecified organism Category: Medical Code(s): J18.9 - Pneumonia, unspecified organism (3) COPD exacerbation Current visit: Yes Status: Acute Category: Medical Code(s): J44.1 - Chronic obstructive pulmonary disease with (acute) exacerbation (4) A-fib Current visit: Yes Status: Chronic Qualifiers: Atrial fibrillation type: chronic Qualified Code(s): I48.2 - Chronic atrial fibrillation Category: Medical Code(s): I48.91 - Unspecified atrial fibrillation (5) Hypertension Current visit: Yes Status: Chronic Category: Medical Code(s): I10 - Essential (primary) hypertension (6) Hyperlipidemia Current visit: Yes Status: Chronic Category: Medical Code(s): E78.5 - Hyperlipidemia, unspecified - Assessment and plan all Dx Assessment and Plan for all problems:: INR has increased and we will decrease his warfarin daily. Continue with current antibiotics and nebs.
[2018-04-18 05:59] LABS: INR 2.71 (0.9-1.1); Prothrombin Time 29.6 seconds (9.4-11.8)
--- NOTE | 2018-04-18 08:04 | Progress Note ---
<Estefania Pierre - Last Filed: 04/18/18 08:16> Internal Medicine - PN: Subj *Date: 04/18/18 *Time: 08:16 Interval history: Patient does not feel that he is ready to go home. States that he is too weak. He gets short of breath at times. He states his O2 sats have been stable. He denies pain. He states that he can barely get out of bed and take a few steps to sit in the chair. He is voiding without difficulty. He is eating without difficulty. Exam Vital signs and Labs for Last 24 Hours: Temp Pulse Resp BP Pulse Ox 97.6 F 100 H 20 133/84 96 04/18/18 04:00 04/18/18 06:15 04/18/18 04:00 04/18/18 04:00 04/18/18 06:15 Laboratory Results - last 24 hr 04/16/18 13:50: Vitamin B12 1577 H 04/18/18 05:25: PT 29.6 H, INR 2.71 H I & O for Last 24 hours: Intake & Output 04/15/18 04/16/18 04/17/18 04/18/18 11:59 11:59 11:59 11:59 Intake Total 1825 / 1825 1867 / 1867 1712 / 1712 270 / 270 Balance 1825 / 1825 1867 / 1867 1712 / 1712 270 / 270 Weight 217 lb 8 oz 223 lb 2 oz 221 lb 5 oz 229 lb 3 oz Microbiology Reports for the Last 24 Hours: Microbiology 04/12/18 19:12 Blood Blood Culture - Final NO GROWTH AFTER 5 DAYS 04/12/18 19:12 Blood Blood Culture - Final NO GROWTH AFTER 5 DAYS - Constitutional no acute distress Comments: Sitting in recliner at bedside and has completed breakfast. - *Routine Respiratory Exam Present: wheezes, diminished air movement. Absent: respiratory distress - *Routine Cardiovascular Exam Present: irregularly irregular Comments: Monitor shows atrial fibrillation with ventricular rate in the 90s - *Routine Abdominal Exam Present: soft, normoactive bowel sounds. Absent: tenderness - *Routine Extremities Exam Absent: edema, tenderness - *Routine Neurological Exam Present: alert, oriented X3 Assessment and Plan (1) Respiratory failure with hypoxia and hypercapnia Current visit: Yes Status: Acute Qualifiers: Chronicity: acute Qualified Code(s): J96.01 - Acute respiratory failure with hypoxia; J96.02 - Acute respiratory failure with hypercapnia Category: Medical Code(s): J96.91 - Respiratory failure, unspecified with hypoxia; J96.92 - Respiratory failure, unspecified with hypercapnia (2) Community acquired pneumonia Current visit: Yes Status: Acute Qualifiers: Laterality: unspecified laterality Qualified Code(s): J18.9 - Pneumonia, unspecified organism Category: Medical Code(s): J18.9 - Pneumonia, unspecified organism (3) COPD exacerbation Current visit: Yes Status: Acute Category: Medical Code(s): J44.1 - Chronic obstructive pulmonary disease with (acute) exacerbation (4) A-fib Current visit: Yes Status: Chronic Qualifiers: Atrial fibrillation type: chronic Qualified Code(s): I48.2 - Chronic atrial fibrillation Category: Medical Code(s): I48.91 - Unspecified atrial fibrillation (5) Hypertension Current visit: Yes Status: Chronic Category: Medical Code(s): I10 - Essential (primary) hypertension (6) Hyperlipidemia Current visit: Yes Status: Chronic Category: Medical Code(s): E78.5 - Hyperlipidemia, unspecified (7) Physical debility Current visit: Yes Status: Acute Category: Medical Code(s): R53.81 - Other malaise - Assessment and plan all Dx Assessment and Plan for all problems:: Repeat chest x-ray; PT and OT consulted. Continue nebs and antibiotics. <Alphonse Sandhu - Last Filed: 04/18/18 08:36> Internal Medicine - PN: Subj *Date: 04/18/18 *Time: 08:35 Exam Vital signs and Labs for Last 24 Hours: Temp Pulse Resp BP Pulse Ox 97.4 F L 101 H 18 105/75 91 L 04/18/18 08:00 04/18/18 08:00 04/18/18 08:00 04/18/18 08:00 04/18/18 08:00 Laboratory Results - last 24 hr 04/16/18 13:50: Vitamin B12 1577 H 04/18/18 05:25: PT 29.6 H, INR 2.71 H I & O for Last 24 hours: Intake & Output 04/15/18 04/16/18 04/17/18 04/18/18 11:59 11:59 11:59 11:59 Intake Total 1824 630 / 630 Balance 1824 / 1711 630 / 630 Weight 217 lb 8 oz 223 lb 2 oz 221 lb 5 oz 229 lb 3 oz Microbiology Reports for the Last 24 Hours: Microbiology 04/12/18 19:12 Blood Blood Culture - Final NO GROWTH AFTER 5 DAYS 04/12/18 19:12 Blood Blood Culture - Final NO GROWTH AFTER 5 DAYS Assessment and Plan (1) Respiratory failure with hypoxia and hypercapnia Current visit: Yes Status: Acute Qualifiers: Chronicity: acute Qualified Code(s): J96.01 - Acute respiratory failure with hypoxia; J96.02 - Acute respiratory failure with hypercapnia Category: Medical Code(s): J96.91 - Respiratory failure, unspecified with hypoxia; J96.92 - Respiratory failure, unspecified with hypercapnia (2) Community acquired pneumonia Current visit: Yes Status: Acute Qualifiers: Laterality: unspecified laterality Qualified Code(s): J18.9 - Pneumonia, unspecified organism Category: Medical Code(s): J18.9 - Pneumonia, unspecified organism (3) COPD exacerbation Current visit: Yes Status: Acute Category: Medical Code(s): J44.1 - Chronic obstructive pulmonary disease with (acute) exacerbation (4) A-fib Current visit: Yes Status: Chronic Qualifiers: Atrial fibrillation type: chronic Qualified Code(s): I48.2 - Chronic atrial fibrillation Category: Medical Code(s): I48.91 - Unspecified atrial fibrillation (5) Hypertension Current visit: Yes Status: Chronic Category: Medical Code(s): I10 - Essential (primary) hypertension (6) Hyperlipidemia Current visit: Yes Status: Chronic Category: Medical Code(s): E78.5 - Hyperlipidemia, unspecified (7) Physical debility Current visit: Yes Status: Acute Category: Medical Code(s): R53.81 - Other malaise - Assessment and plan all Dx Assessment and Plan for all problems:: Patient seen and examined. Concur with assessment and plan for today. May need to consider short term skilled care placement
[2018-04-18 10:08] LABS: Folate 16.7 ng/mL (>3.0)
--- NOTE | 2018-04-19 07:59 | Progress Note ---
Internal Medicine - PN: Subj *Date: 04/19/18 *Time: 07:55 Interval history: States he is feeling well today. Denies any pain. Is still short of air and coughing up sputum. He was able to work with therapy yesterday and walked to the door and back with a walker. Exam Vital signs and Labs for Last 24 Hours: Temp Pulse Resp BP Pulse Ox 97.8 F 92 H 20 127/75 95 04/19/18 04:00 04/19/18 06:07 04/19/18 04:00 04/19/18 04:00 04/19/18 06:07 Laboratory Results - last 24 hr 04/16/18 13:50: Folate 16.7 I & O for Last 24 hours: Intake & Output 04/16/18 04/17/18 04/18/18 04/19/18 11:59 11:59 11:59 11:59 Intake Total 1866 / 1866 1712 / 1712 630 / 630 3082 / 3082 Balance 186 / 1867 1712 / 1712 630 / 630 3082 / 3082 Weight 223 lb 2 oz 221 lb 5 oz 229 lb 3 oz Radiology Reports for the Last 24 Hours: CXR - Worsening bilateral lower lobe pneumonia with bilateral effusions - Constitutional no acute distress - *Routine Respiratory Exam Present: decreased breath sounds, wheezes - *Routine Cardiovascular Exam Present: irregularly irregular - *Routine Abdominal Exam Present: soft, normoactive bowel sounds. Absent: tenderness - *Routine Extremities Exam Absent: edema Assessment and Plan (1) Respiratory failure with hypoxia and hypercapnia Current visit: Yes Status: Acute Qualifiers: Chronicity: acute Qualified Code(s): J96.01 - Acute respiratory failure with hypoxia; J96.02 - Acute respiratory failure with hypercapnia Category: Medical Code(s): J96.91 - Respiratory failure, unspecified with hypoxia; J96.92 - Respiratory failure, unspecified with hypercapnia (2) Community acquired pneumonia Current visit: Yes Status: Acute Qualifiers: Laterality: unspecified laterality Qualified Code(s): J18.9 - Pneumonia, unspecified organism Category: Medical Code(s): J18.9 - Pneumonia, unspecified organism (3) COPD exacerbation Current visit: Yes Status: Acute Category: Medical Code(s): J44.1 - Chronic obstructive pulmonary disease with (acute) exacerbation (4) A-fib Current visit: Yes Status: Chronic Qualifiers: Atrial fibrillation type: chronic Qualified Code(s): I48.2 - Chronic atrial fibrillation Category: Medical Code(s): I48.91 - Unspecified atrial fibrillation (5) Hypertension Current visit: Yes Status: Chronic Category: Medical Code(s): I10 - Essential (primary) hypertension (6) Hyperlipidemia Current visit: Yes Status: Chronic Category: Medical Code(s): E78.5 - Hyperlipidemia, unspecified (7) Physical debility Current visit: Yes Status: Acute Category: Medical Code(s): R53.81 - Other malaise - Assessment and plan all Dx Assessment and Plan for all problems:: The patient's chest x-ray shows a worsening pneumonia. He did have a speech evaluation yesterday that showed some aspiration, therefore he is using chin tucks to keep from aspirating. He felt he would need skilled placement. He does have a bed at [facility]. Will discuss further care with her latanya.
--- NOTE | 2018-04-19 08:15 | Discharge Summary ---
General - General Admission date:: 04/12/18 Discharge date: 04/19/18 HPI HPI: Mr. Roque is an 82yo male patient of Dr. Lewis. He is currently on BiPAP and it is difficult for him to speak, therefore some of this history is taken from the ER note. Apparently he was hypoxic upon arrival to the emergency room. He had had increasing shortness of air for 3-4 days with a productive cough. He felt hot but there was no documented fever. He denied any chest pain. He has a history of COPD and is on home oxygen at 2.5 L. He also uses nebulizer treatments and inhalers. He does continue to smoke. She was evaluated in the emergency room and found to have a pneumonia. He was hypoxic and hypercapnic. He was admitted and started on BiPAP. He did express wishes to the ER physician for no intubation and no CPR. He wanted to be a DNR. Hospital Course Hospital Course: Patient's chest x-ray showed COPD with bilateral infiltrates small bilateral pleural effusions. He was started on antibiotics, nebs, and steroids. BiPAP was placed due to hypercapnia. His CO2 did improve with the BIPAP. He complained that he had had a sore throat for weeks and had not been able to get any diagnosis or treatment regarding the symptoms. A CT of the neck showed nothing acute. He was able to be switched to nasal oxygen and did well. His sputum cx was positive for serratia marcescens, pseudomonas aeurginosa, and H. Flu. His abx were switched from zithromax and rocephin to levaquin and rocephin. He had numerous chest x-rays all showing no imrovement in his pneumonia. He did have a modified barium swallow which showed minimal penetration with thin liquids. It did show improvement with the chin tuck maneuver, therefore speech therapy recommended chin tucks to keep the patient from aspirating. He was able to work with therapy and walk with a walker. It was felt he would need skilled placement and a bed was found for him at [facility], however he did not want to go to the senior living. His daughter stated that she would take care of him when he came home. He had another CXR and Dr. King reviewed it with Dr. Anthony. It showed little change from the previous chest x-ray and the abnormality focused on the effusion on the left which was persistent. Dr. King suspected we cleared up the interstitial infection but the pleural effusion persists. The patient symptoms had improved and he elected to be discharged back to home. He will follow-up with Dr. Lewis in [place]. He will be on nasal O2 and will continue omnicef and levaquin at home. Objective Vital signs: Temp Pulse Resp BP Pulse Ox 98.2 F 91 H 20 115/67 92 L 04/19/18 07:57 04/19/18 07:57 04/19/18 07:57 04/19/18 07:57 04/19/18 07:57 Narrative: - Constitutional no acute distress Comments: difficulty talking with BIPAP in place - *Routine HEENT Exam Head: Present: normocephalic, atraumatic Eye: Present: EOMI, PERRL ENT: Present: mucous membranes dry - *Routine Neck Exam Present: supple, full ROM - *Routine Respiratory Exam Present: rales (bibasilar), wheezes (faint). Absent: rhonchi - *Routine Cardiovascular Exam Present: irregularly irregular - *Routine Abdominal Exam Present: soft, normoactive bowel sounds. Absent: tenderness - *Routine Extremities Exam Present: edema (trace) - *Routine Skin Exam Present: intact - *Routine Neurological Exam Present: alert Results Labs on day of discharge: Labs from last 24 hours 04/16/18 13:50 Folate 16.7 DS: Diagnosis - Discharge Diagnosis (1) Respiratory failure with hypoxia and hypercapnia Status: Acute (2) Community acquired pneumonia Status: Acute (3) COPD exacerbation Status: Acute (4) A-fib Status: Chronic (5) Hypertension Status: Chronic (6) Hyperlipidemia Status: Chronic (7) Physical debility Status: Acute Discharge Plan - Patient Discharge Instructions Patient Instructions: Warfarin, Coumadin Vitamin K/ Diet, Coumadin Therapy Booklet - Follow up Plan Follow up with: Unruly Lewis [Primary Care Provider] - Disposition: Home, Self-Half-Way Medications: Home Medications Medication Instructions Recorded Confirmed Type B12/Levomefolate Calcium/B-6 1 each PO DAILY 04/12/18 04/12/18 History [Foltx Tablet] Calcium Carbonate [Oscal-500 500 mg PO BID 04/12/18 04/12/18 History tablet] Carvedilol [Carvedilol 3.125mg Tab] 3.125 mg PO BID 04/12/18 04/12/18 History Furosemide [Lasix 20mg tablet] 20 mg PO DAILY 04/12/18 04/12/18 History Hydrocodone/Acetaminophen 1 tab PO BIDP PRN 04/12/18 04/13/18 History [Hydrocodone-Acetamin 10-325 mg] Lisinopril [Lisinopril 5mg Tablet] 5 mg PO DAILY 04/12/18 04/12/18 History Multivit-Min/FA/Lycopen/Lutein 1 each PO DAILY 04/12/18 04/12/18 History [Centrum Silver Tablet] Pravastatin Sodium [Pravachol 40mg 40 mg PO HS 04/12/18 04/13/18 History Tablet] Aspirin [Aspirin 81mg EC Tab] 81 mg PO DAILY 04/13/18 04/13/18 History Cholecalciferol (Vitamin D3) 400 unit PO DAILY 04/13/18 04/13/18 History [Vitamin D3] Ferrous Gluconate [Ferrous 324 mg PO DAILY 04/13/18 04/13/18 History Gluconate 324mg Tab] Ipratropium/Albuterol Sulfate 3 ml IH QIDP PRN 04/13/18 04/13/18 History [Duoneb 3mL neb] Prescriptions/Medication Reconciliation: New Warfarin Sodium [Coumadin 3mg tablet] 3 mg PO COUMADIN tablet levoFLOXacin [Levaquin 500mg tab] 500 mg PO 1100 #3 tab Cefdinir [Omnicef 300mg Capsule] 300 mg PO BID #14 cap Continue Furosemide [Lasix 20mg tablet] 20 mg PO DAILY Carvedilol [Carvedilol 3.125mg Tab] 3.125 mg PO BID Lisinopril [Lisinopril 5mg Tablet] 5 mg PO DAILY Pravastatin Sodium [Pravachol 40mg Tablet] 40 mg PO HS Multivit-Min/FA/Lycopen/Lutein [Centrum Silver Tablet] 1 each PO DAILY Calcium Carbonate [Oscal-500 tablet] 500 mg PO BID Hydrocodone/Acetaminophen [Hydrocodone-Acetamin 10-325 mg] 1 tab PO BIDP PRN PRN Reason: PAIN Ipratropium/Albuterol Sulfate [Duoneb 3mL neb] 3 ml IH QIDP PRN PRN Reason: Shortness Of Breath B12/Levomefolate Calcium/B-6 [Foltx Tablet] 1 each PO DAILY Aspirin [Aspirin 81mg EC Tab] 81 mg PO DAILY Cholecalciferol (Vitamin D3) [Vitamin D3] 400 unit PO DAILY Ferrous Gluconate [Ferrous Gluconate 324mg Tab] 324 mg PO DAILY Discontinued Warfarin Sodium 6.5 mg PO TUTHSA Multivit-Min/FA/Lycopen/Lutein [Centrum Silver Tablet] 1 each PO DAILY Warfarin Sodium 6 mg PO SUMOWEFR
--- NOTE | 2018-04-19 08:28 | Progress Note ---
Internal Medicine - PN: Subj *Date: 04/19/18 *Time: 08:28 Exam Vital signs and Labs for Last 24 Hours: Temp Pulse Resp BP Pulse Ox 98.2 F 91 H 20 115/67 92 L 04/19/18 07:57 04/19/18 07:57 04/19/18 07:57 04/19/18 07:57 04/19/18 07:57 Laboratory Results - last 24 hr 04/16/18 13:50: Folate 16.7 I & O for Last 24 hours: Intake & Output 04/16/18 04/17/18 04/18/18 04/19/18 23:59 23:59 23:59 23:59 Intake Total 1412 / 1412 1182 / 1182 2408 / 2408 1394 / 1394 Balance 1412 / 1412 1182 / 1182 2408 / 2408 1394 / 1394 Weight 101.208 kg 100.386 kg 103.958 kg Assessment and Plan (1) Respiratory failure with hypoxia and hypercapnia Current visit: Yes Status: Acute Qualifiers: Chronicity: acute Qualified Code(s): J96.01 - Acute respiratory failure with hypoxia; J96.02 - Acute respiratory failure with hypercapnia Category: Medical Code(s): J96.91 - Respiratory failure, unspecified with hypoxia; J96.92 - Respiratory failure, unspecified with hypercapnia (2) Community acquired pneumonia Current visit: Yes Status: Acute Qualifiers: Laterality: unspecified laterality Qualified Code(s): J18.9 - Pneumonia, unspecified organism Category: Medical Code(s): J18.9 - Pneumonia, unspecified organism (3) COPD exacerbation Current visit: Yes Status: Acute Category: Medical Code(s): J44.1 - Chronic obstructive pulmonary disease with (acute) exacerbation (4) A-fib Current visit: Yes Status: Chronic Qualifiers: Atrial fibrillation type: chronic Qualified Code(s): I48.2 - Chronic atrial fibrillation Category: Medical Code(s): I48.91 - Unspecified atrial fibrillation (5) Hypertension Current visit: Yes Status: Chronic Category: Medical Code(s): I10 - Essential (primary) hypertension (6) Hyperlipidemia Current visit: Yes Status: Chronic Category: Medical Code(s): E78.5 - Hyperlipidemia, unspecified (7) Physical debility Current visit: Yes Status: Acute Category: Medical Code(s): R53.81 - Other malaise The patient's infection will respond to the chosen ABx?: Yes Is the patient receiving the right drug, dose, and route?: Yes Could a more targeted ABx be ordered?: No
--- NOTE | 2018-04-20 08:03 | Progress Note ---
Internal Medicine - PN: Subj *Date: 04/20/18 *Time: 08:01 Interval history: Patient states he is feeling better today. He did work with therapy yesterday. He states he is still coughing up sputum and his throat is still sore. He did not rest well last night. He did eat most of his breakfast this morning. Exam Vital signs and Labs for Last 24 Hours: Temp Pulse Resp BP Pulse Ox 98.3 F 93 H 22 114/71 93 L 04/20/18 07:44 04/20/18 07:44 04/20/18 07:44 04/20/18 07:44 04/20/18 07:44 I & O for Last 24 hours: Intake & Output 04/17/18 04/18/18 04/19/18 04/20/18 11:59 11:59 11:59 11:59 Intake Total 1712 / 1712 630 / 630 3442 / 3442 3610 / 3610 Balance 1712 / 1712 630 / 630 3442 / 3442 3610 / 3610 Weight 221 lb 5 oz 229 lb 3 oz 233 lb 8 oz - Constitutional no acute distress - *Routine Respiratory Exam Present: decreased breath sounds - *Routine Cardiovascular Exam Present: irregularly irregular - *Routine Abdominal Exam Present: soft, normoactive bowel sounds. Absent: tenderness - *Routine Extremities Exam Present: edema (trace) Assessment and Plan (1) Respiratory failure with hypoxia and hypercapnia Current visit: Yes Status: Acute Qualifiers: Chronicity: acute Qualified Code(s): J96.01 - Acute respiratory failure with hypoxia; J96.02 - Acute respiratory failure with hypercapnia Category: Medical Code(s): J96.91 - Respiratory failure, unspecified with hypoxia; J96.92 - Respiratory failure, unspecified with hypercapnia (2) Community acquired pneumonia Current visit: Yes Status: Acute Qualifiers: Laterality: unspecified laterality Qualified Code(s): J18.9 - Pneumonia, unspecified organism Category: Medical Code(s): J18.9 - Pneumonia, unspecified organism (3) COPD exacerbation Current visit: Yes Status: Acute Category: Medical Code(s): J44.1 - Chronic obstructive pulmonary disease with (acute) exacerbation (4) A-fib Current visit: Yes Status: Chronic Qualifiers: Atrial fibrillation type: chronic Qualified Code(s): I48.2 - Chronic atrial fibrillation Category: Medical Code(s): I48.91 - Unspecified atrial fibrillation (5) Hypertension Current visit: Yes Status: Chronic Category: Medical Code(s): I10 - Essential (primary) hypertension (6) Hyperlipidemia Current visit: Yes Status: Chronic Category: Medical Code(s): E78.5 - Hyperlipidemia, unspecified (7) Physical debility Current visit: Yes Status: Acute Category: Medical Code(s): R53.81 - Other malaise - Assessment and plan all Dx Assessment and Plan for all problems:: Chest x-ray shows no change in the bilateral lower lobe pneumonia and a left effusion. Will discuss further care with Dr. pelaez.
== END 2018-04-20 15:18 | disposition home or self-care (01) ==
LOC: ER 19:11 → 2ND 20:28
PROVIDERS: ADMIT Family Medicine; ATTEND Family Medicine

== ENCOUNTER 2018-07-04 14:15 | Inpatient (IN) ==
[2018-07-04 14:56] LABS: Basophils % 0.4 % (0.1-2.0); Eosinophils # 0.3 K/mm3 (0.0-0.4); Eosinophils % 4.4 % (0.1-12.0); Hematocrit 42.8 % (42.0-52.0); Hemoglobin 13.1 g/dL (14.1-18.0); Lymphocytes # 0.9 K/mm3 (0.7-4.5); Lymphocytes % 13.2 K/mm3 (10-50); Mean Corpuscular HGB Conc 30.5 g/dL (31.8-35.4); Mean Corpuscular Hemoglobin 30.9 pg (27.0-31.2); Mean Platelet Volume 8.2 fl (7.4-10.4); Monocytes # 0.7 K/mm3 (0.1-1.0); Monocytes % 10.3 % (1.7-9.3); Neutrophils # 4.9 K/mm3 (1.8-7.8); Neutrophils % 71.7 % (37.0-80.0); Platelet Count 149 K/mm3 (142-424); Red Blood Count 4.24 M/mm3 (4.60-6.20); Red Cell Distribution Width 14.6 % (11.5-17.5); White Blood Count 6.8 K/mm3 (4.8-10.8)
--- NOTE | 2018-07-04 15:18 | Emergency Department Note ---
ED Disposition Clinical Impression: End stage COPD, Tobacco use disorder, DNR (do not resuscitate), Renal insufficiency, Cor pulmonale, chronic, Pulmonary hypertension, COPD exacerbation , Hypercarbia, Adrenal adenoma, Cholelithiasis, Nephrolithiasis, Lung nodule < 6cm on CT Disposition: Still a Patient Condition on Discharge: Fair Referrals: Unruly Lewis [Primary Care Provider] - - Critical Care Critical Care Time: No Attestation: On 07/04/18, the high probability of a clinically significant, sudden or life threatening deterioration of the following system(s) required my full and direct attention, intervention and personal management. The time I documented below is in addition to time spent performing reported procedures but includes the following listed in this critical care notation. Medical Decision Making - Steve Inquiry Pt receiving controlled substance: No Steve was queried for this patient: No Vital Signs: 07/04/18 14:16 07/04/18 14:25 07/04/18 14:46 Temperature 97.8 F Temperature Source Oral Pulse Rate [Right Brachial] 102 H 107 H 97 H Respiratory Rate 24 Blood Pressure [Right Arm] 140/60 142/58 150/80 Blood Pressure Mean [Right Arm] 86 86 103 Blood Pressure Source [Right Arm] Manual Cuff/ Doppler Automatic Cuff Manual Cuff/ Doppler Blood Pressure Position [Right Arm] Sitting Sitting Sitting 02 Sat by Pulse Oximetry 90 L 85 L 92 L Oxygen Delivery Method Room Air 07/04/18 15:16 07/04/18 15:46 07/04/18 16:35 Temperature Temperature Source Pulse Rate [Right Brachial] 98 H 89 80 Respiratory Rate Blood Pressure [Right Arm] 146/72 143/77 140/78 Blood Pressure Mean [Right Arm] 96 99 98 Blood Pressure Source [Right Arm] Manual Cuff/ Doppler Automatic Cuff Manual Cuff/ Doppler Blood Pressure Position [Right Arm] Sitting Sitting Sitting 02 Sat by Pulse Oximetry 94 L 94 L 95 Oxygen Delivery Method - Lab Data Lab Results 07/04/18 14:40: WBC 6.8, RBC 4.24 L, Hgb 13.1 L, Hct 42.8, MCV 101.0 H, MCH 30.9 , MCHC 30.5 L, RDW 14.6, Plt Count 149, MPV 8.2, Neut % (Auto) 71.7, Lymph % ( Auto) 13.2, Snyder % (Auto) 10.3 H, Eos % (Auto) 4.4, Baso % (Auto) 0.4, Neut # ( Auto) 4.9, Lymph # (Auto) 0.9, Snyder # (Auto) 0.7, Eos # (Auto) 0.3, Baso # (Auto ) 0.0 07/04/18 14:40: D-Dimer 485 H* 07/04/18 14:40: Sodium 139, Potassium 4.3, Chloride 96 L, Carbon Dioxide 47 H*, Anion Gap 0.3 L, BUN 36 H, Creatinine 1.13, Estimated Creat Clear 72, Estimated GFR 62, Est GFR ( Amer) 75, Glucose 95, Calcium 9.2, Troponin I < 0.02 07/04/18 14:40: Lactate 1.1 07/04/18 14:40: B-Natriuretic Peptide 85 07/04/18 14:45: Total Bilirubin 0.5, Direct Bilirubin 0.2, Indirect Bilirubin 0.3, AST 11 L, ALT 19, Alkaline Phosphatase 78, Total Protein 6.8, Albumin 3.4 07/04/18 16:04: Specimen Source Right radial, O2 % 2l, ABG pH 7.35, ABG pCO2 68.5 H, ABG pO2 95.0, ABG HCO3 36.5 H, ABG Total CO2 38.6 H, ABG O2 Saturation 97, ABG Base Excess 10.9 H, Josh Test Acceptable 07/04/18 17:45: Urine Color Yellow, Urine Appearance Cloudy, Urine pH 6.5, Ur Specific Newborn 1.010, Urine Protein Negative, Urine Glucose (UA) Negative, Urine Ketones Negative, Urine Blood Negative, Urine Nitrate Negative, Urine Bilirubin Negative, Urine Urobilinogen 1.0, Ur Leukocyte Esterase 2+ A, Urine RBC None, Urine WBC 20-50, Ur Squamous Epith Cells 3-5, Urine Bacteria 4+ Result diagrams: 07/04/18 14:40 07/04/18 14:40 Orders (Tests/Meds): ED MEDICATIONS Generic Name Dose Route Start Last Admin Trade Name Freq PRN Reason Stop Dose Admin Sodium Chloride 3 ml 07/04/18 14:36 Sodium Chloride 3% 15ml Neb IH 08/03/18 14:35 ONCE PRN INDUCE SPUTUM COLLECTION Discontinued Medications Generic Name Dose Route Start Last Admin Trade Name Freq PRN Reason Stop Dose Admin Enoxaparin Sodium 80 mg 07/04/18 16:05 07/04/18 16:11 Lovenox 80mg/0.8ml Syringe SQ 07/04/18 16:06 80 mg ONCE ONE Administration Famotidine 20 mg 07/04/18 16:05 07/04/18 16:11 Pepcid 20mg/2ml Vial IV 07/04/18 16:06 20 mg ONCE ONE Administration Iopamidol 70 ml 07/04/18 17:15 07/04/18 17:17 [id number]; 75ml Vial IV 07/04/18 17:16 70 ml ONCE ONE Administration Protocol ORDERS Category Date Time Status CT angio chest Stat Cat Scan 07/04/18 16:04 Taken Blood Culture Stat Micro 07/04/18 14:40 Received Sputum Culture & Gram Stain Stat Micro 07/04/18 15:20 Results Urine Culture Stat Micro 07/04/18 17:45 Received - CT Data CT Scan: Chest Time Received: 18:[address] Reviewed: Yes: I have viewed the radiologist's interpretation Preliminary Findings: Abnormal Findings Narrative: Please see V-rad. report. Medical Decision Narrative: Patient did have hypercarbia similar to prior admission in March and April [address] scan is positive for multiple findings. I called Dr. Doyle was guard immigration for Dr. Yepez for admission. The [facility] agreed to admit the patient for his service using a BiPAP IV antibiotic 2D echo in the morning Resp/SOB HPI - General Chief Complaint: Shortness of Breath/Dyspnea Stated Complaint: o2 low, dizzy, labored breathing Time Seen by Provider: 07/04/18 15:00 Mode of Arrival: Family Vehicle Limitations: No Limitations Description of Symptoms (Recalled from ER Triage Doc. by RN): C/O HYPOXIA, SOB, DIZZY, WEAKNESS AND CONGESTION WITH PRODUCTIVE COUGH. SAW HIS PCP LAST WEEK AND RECEIVED INJECTION OF STEROIDS AND ANTIBIOTICS. EARS HOME 02 @ 3 L PER N/C. - History of Present Illness 83 years old white male with end-stage COPD oxygen dependent who continues to smoke, he presented to the ED today with 2 weeks progressive shortness of breath. He complains of occasional chills yellow productive sputum, today home health nurse found him to have a low saturation of 88%. He was admitted in March for pneumonia. He wishes to be DNR. Complaint: shortness of breath, cough Onset (ago): week(s) (2 weeks.) Severity: mild Consistency/Duration: constant Relieving factors: oxygen, rest Exacerbating factors: exertion Known history of: COPD Associated symptoms: fever, cough, sputum production Treatment prior to arrival: oxygen - Related Data Home oxygen amount: 3 liters Home Medications Medication Instructions Recorded Confirmed B12/Levomefolate Calcium/B-6 1 each PO DAILY 04/12/18 04/12/18 [Foltx Tablet] Calcium Carbonate [Oscal-500 500 mg PO BID 04/12/18 04/12/18 tablet] Carvedilol [Carvedilol 3.125mg Tab] 3.125 mg PO BID 04/12/18 04/12/18 Furosemide [Lasix 20mg tablet] 20 mg PO DAILY 04/12/18 04/12/18 Hydrocodone/Acetaminophen 1 tab PO BIDP PRN 04/12/18 04/13/18 [Hydrocodone-Acetamin 10-325 mg] Lisinopril [Lisinopril 5mg Tablet] 5 mg PO DAILY 04/12/18 04/12/18 Multivit-Min/FA/Lycopen/Lutein 1 each PO DAILY 04/12/18 04/12/18 [Centrum Silver Tablet] Pravastatin Sodium [Pravachol 40mg 40 mg PO HS 04/12/18 04/13/18 Tablet] Aspirin [Aspirin 81mg EC Tab] 81 mg PO DAILY 04/13/18 04/13/18 Cholecalciferol (Vitamin D3) 400 unit PO DAILY 04/13/18 04/13/18 [Vitamin D3] Ferrous Gluconate [Ferrous 324 mg PO DAILY 04/13/18 04/13/18 Gluconate 324mg Tab] Ipratropium/Albuterol Sulfate 3 ml IH QIDP PRN 04/13/18 04/13/18 [Duoneb 3mL neb] Previous Rx's Medication Instructions Recorded Cefdinir [Omnicef 300mg Capsule] 300 mg PO BID #14 cap 04/20/18 Warfarin Sodium [Coumadin 3mg 3 mg PO COUMADIN tablet 04/20/18 tablet] levoFLOXacin [Levaquin 500mg 500 mg PO 1100 #3 tab 04/20/18 tab] Allergies Allergy/AdvReac Type Severity Reaction Status Date / Time Penicillins Allergy Intermediate Difficulty Verified 04/12/18 19:20 Breathing [facility] History I have reviewed the patient's past medical history: Yes Medical History: Reports:: Arrhythmia, Atrial Fibrillation, Congestive Heart Failure, Hyperlipidemia, Hypertension, Myocardial Infarction Denies:: Cancer, Diabetes Mellitus Type 1, Diabetes Mellitus Type 2, MRSA Other Surgeries: Yes: Colonoscopy Amputation: No Fractures: Yes (left arm) - Social History Smoking Status: Current every day smoker Tobacco Type: cigarettes Alcohol Intake: never Occupational Status: retired Housing: house - Psychiatric History Expresses thoughts of harming self/others: None Suicide Plan Description: No Plan Family Hx:: Unable to obtain ROS Obtained: Yes All systems reviewed & no additional complaints Physical Exam - General General appearance: alert, in no apparent distress - Head Head exam: atraumatic, normocephalic, normal inspection - Eye Eye exam: Present: normal appearance, PERRL, EOMI - ENT ENT exam: Present: normal exam, normal oropharynx, mucous membranes moist, TM's normal bilaterally, normal external ear exam - Neck Neck exam: Present: normal inspection, full ROM, trachea midline. Absent: meningismus, lymphadenopathy - Chest Chest inspection: Present: normal inspection, symmetric chest wall rise. Absent : tenderness - Respiratory Respiratory exam: Present: normal lung sounds bilaterally, wheezes. Absent: respiratory distress - Cardiovascular Cardiovascular exam: Present: regular rate, normal rhythm. Absent: JVD - Abdominal Exam Abdominal exam: Present: soft, normal bowel sounds. Absent: distention, tenderness, guarding, rebound, rigidity - Extremities Exam Extremities exam: Present: normal inspection, full ROM, normal capillary refill , pedal edema, other (He does have trace edema of the left lower extremity, cap refill 1 second bilaterally. ). Absent: calf tenderness - Back Exam Back exam: Present: normal inspection. Absent: tenderness - Neurological Exam Neurological exam: Present: alert, oriented X3, CN II-XII intact, motor sensory deficit, reflexes normal - Psychiatric Psychiatric exam: Present: normal affect, normal mood - Skin Skin exam: Present: warm, dry, intact, normal color - Lymphatic Lymphatic Findings: no adenopathy
[2018-07-04 15:22] LABS: Blood Urea Nitrogen 36 mg/dL (7-18); Calcium 9.2 mg/dL (8.5-10.1); Chloride 96 mmol/L (98-107); Glucose 95 mg/dL (74-106); Potassium 4.3 mmoL/L (3.5-5.1); Sodium 139 mmol/L (136-145)
[2018-07-04 15:32] LABS: Anion Gap 0.3 mEq/L (5-15); Carbon Dioxide 47 mmol/L (21.0-32.0)
[2018-07-04 15:42] LABS: Albumin Level 3.4 gm/dL (3.4-5.0); Bilirubin,Direct 0.2 mg/dL (0.0-0.2); Bilirubin,Indirect 0.3 mg/dL (0.0-0.9); Bilirubin,Total 0.5 mg/dL (0.2-1.0); Total Protein,Serum 6.8 gm/dL (6.4-8.2)
[2018-07-04 16:20] LABS: ABG Base Excess 10.9 mmol/L (-2.4-2.3); ABG HCO3 36.5 mmhg (22.0-26.0); ABG Oxygen Saturation 97 % (90-100); ABG PH 7.35 mmol/L (7.35-7.45); ABG TCO2 38.6 mmhg (23-27)
[2018-07-04 16:21] LABS: Allen's Test Acceptable; Oxygen 2L %
[2018-07-04 16:22] LABS: ABG PCO2 68.5 mmhg (35.0-45.0)
[2018-07-04 17:53] LABS: Appearance,Urine CLOUDY (Clear); Bilirubin,Urine Negative (Negative); Blood, Urine Negative (Negative); Color,Urine YELLOW (Yellow); Glucose,Urine (UA) Negative (Negative); Ketones,Urine Negative (Negative); Leukocyte Esterase,Urine 2+ (Negative); Microscopic, Urine URINE MICROSCOPIC (MICROSCOPIC); PH,Urine 6.5 (5.0-8.5); Protein,Urine Negative (Negative)
[2018-07-04 18:14] LABS: Bacteria,Urine 4+ /lpf; WBC,Urine 20-50 #/hpf (0-3)
[2018-07-04 18:51] LABS: INR 1.24 (0.9-1.1); Prothrombin Time 12.7 seconds (9.4-11.8)
[2018-07-05 06:25] LABS: Basophils % 0.7 % (0.1-2.0); Eosinophils # 0.3 K/mm3 (0.0-0.4); Eosinophils % 5.5 % (0.1-12.0); Hematocrit 40.8 % (42.0-52.0); Hemoglobin 12.5 g/dL (14.1-18.0); Lymphocytes % 17.7 K/mm3 (10-50); Mean Corpuscular HGB Conc 30.7 g/dL (31.8-35.4); Mean Corpuscular Hemoglobin 30.8 pg (27.0-31.2); Mean Corpuscular Volume 100.5 fl (80-94); Mean Platelet Volume 7.5 fl (7.4-10.4); Monocytes # 0.7 K/mm3 (0.1-1.0); Monocytes % 13.2 % (1.7-9.3); Neutrophils # 3.4 K/mm3 (1.8-7.8); Platelet Count 112 K/mm3 (142-424); Red Blood Count 4.06 M/mm3 (4.60-6.20); Red Cell Distribution Width 14.6 % (11.5-17.5); White Blood Count 5.4 K/mm3 (4.8-10.8)
[2018-07-05 06:30] LABS: Anion Gap 1.5 mEq/L (5-15); Calcium 8.9 mg/dL (8.5-10.1); Potassium 4.5 mmoL/L (3.5-5.1)
--- NOTE | 2018-07-05 07:15 | Pharmacy Consult Notes ---
[facility] Pharmacy VTE Monitoring - Patient Demographics Admission date: 07/04/18 Report Date: 07/05/18 Time: 07:14 Allergies/Adverse Reactions: Patient Allergies Penicillins Allergy (Intermediate, Verified 04/12/18 19:20) Difficulty Breathing Height: 1.88 m Weight: 99.478 kg Patient Problems: Current Active Problems COPD exacerbation (Acute) End stage COPD (Acute) Tobacco use disorder (Acute) DNR (do not resuscitate) (Acute) Renal insufficiency (Acute) Cor pulmonale, chronic (Acute) Pulmonary hypertension (Acute) Hypercarbia (Acute) Adrenal adenoma (Acute) Cholelithiasis (Acute) Nephrolithiasis (Acute) Lung nodule < 6cm on CT (Acute) - VTE Risk Labs: VTE Related Lab Results Hgb 12.5 g/dL (14.1-18.0) L 07/05/18 05:41 Hct 40.8 % (42.0-52.0) L 07/05/18 05:41 Plt Count 112 K/mm3 (142-424) L 07/05/18 05:41 PT 12.7 seconds (9.4-11.8) H 07/04/18 18:40 INR 1.24 (0.9-1.1) H 07/04/18 18:40 BUN 31 mg/dL (7-18) H 07/05/18 05:41 Creatinine 0.94 mg/dL (0.70-1.30) 07/05/18 05:41 Estimated Creat Clear 82 mL/min (0-300) 07/05/18 05:41 Was VTE Risk Assessment Performed: Yes VTE Score: 7 VTE Risk Level: Moderate Risk Clinical Trial Participant: No - Prophylaxis VTE Prophylaxis Ordered?: Yes Types of VTE Prophylaxis: TEDS Knee High Pharmacologic Type: Warfarin
--- NOTE | 2018-07-05 08:30 | History & Physical Report ---
*Admission Date: 07/04/18 *Chief complaint: Shortness of air and coughing *History of present illness: 82-year-old white male with end-stage COPD, oxygen requiring, maintains DNR status, who was admitted here with hypoxic/hypercarbic respiratory failure in March 2018, who returned to the emergency department on the day of admission with cough and congestion, found to have hypercapnia, hypoxia, consistent with COPD exacerbation with cough and congestion. Markedly abnormal chest x-ray and sputum production, admitted to hospital for pulmonary toilet, IV antibiotics. [facility] History Medical History: Reports:: Arrhythmia, Atrial Fibrillation, Congestive Heart Failure, Chronic Obstructive Pulmonary Disease (COPD) (End-stage/oxygen requiring), Hyperlipidemia, Hypertension, MRSA, Myocardial Infarction Denies:: Cancer, Diabetes Mellitus Type 1, Diabetes Mellitus Type 2 Laterality Cases: Left: Other Other Surgeries: Yes: CABG, Colonoscopy, Other Amputation: No Fractures: Yes (left arm) - *Social History Educational Level: Attended Grade School Smoking Status: Current every day smoker Tobacco Type: cigarettes # Packs/Day (cigarettes): 1 Alcohol Intake: never Occupational Status: retired Housing: house - Psychiatric History Expresses thoughts of harming self/others: None Suicide Plan Description: No Plan *Family Hx:: Unable to obtain Review of Systems - Review of Systems Review of systems:: pertinent systems reviewed and negative unless documented below - Constitutional Reports anorexia, Reports chills, Reports fever(s), Reports weakness, Denies body ache(s) - Eyes Denies blind spots, Denies blurry vision, Denies change in vision - ENT Denies abnormal hearing, Denies bleeding gums, Denies change in voice, Denies difficulty swallowing - *Cardiovascular Reports shortness of breath, Reports shortness of breath with activity, Reports irregular heart rhythm, Denies chest pain, Denies excessive sweating - *Respiratory Reports change in phlegm color, Reports chest congestion, Reports cough, Reports shortness of breath - *Gastrointestinal Denies abdominal pain, Denies belching, Denies bloating - *Genitourinary Denies difficulty urinating - *Musculoskeletal Denies abnormal walking - *Neurologic Denies abnormal walking, Denies abnormal hearing, Denies burning sensations - Endocrine Denies excessive sweating, Denies flushing, Denies heat intolerance Meds Home Medications Medication Instructions Recorded Confirmed Type B12/Levomefolate Calcium/B-6 1 each PO DAILY 04/12/18 04/12/18 History [Foltx Tablet] Calcium Carbonate [Oscal-500 500 mg PO BID 04/12/18 04/12/18 History tablet] Carvedilol [Carvedilol 3.125mg Tab] 3.125 mg PO BID 04/12/18 04/12/18 History Furosemide [Lasix 20mg tablet] 20 mg PO DAILY 04/12/18 04/12/18 History Hydrocodone/Acetaminophen 1 tab PO BIDP PRN 04/12/18 04/13/18 History [Hydrocodone-Acetamin 10-325 mg] Lisinopril [Lisinopril 5mg Tablet] 5 mg PO DAILY 04/12/18 04/12/18 History Multivit-Min/FA/Lycopen/Lutein 1 each PO DAILY 04/12/18 04/12/18 History [Centrum Silver Tablet] Pravastatin Sodium [Pravachol 40mg 40 mg PO HS 04/12/18 04/13/18 History Tablet] Aspirin [Aspirin 81mg EC Tab] 81 mg PO DAILY 04/13/18 04/13/18 History Cholecalciferol (Vitamin D3) 400 unit PO DAILY 04/13/18 04/13/18 History [Vitamin D3] Ferrous Gluconate [Ferrous 324 mg PO DAILY 04/13/18 04/13/18 History Gluconate 324mg Tab] Ipratropium/Albuterol Sulfate 3 ml IH QIDP PRN 04/13/18 04/13/18 History [Duoneb 3mL neb] Allergies Allergy/AdvReac Type Severity Reaction Status Date / Time Penicillins Allergy Intermediate Difficulty Verified 04/12/18 19:20 Breathing Exam Vital signs and Labs for Last 24 Hours: Temp Pulse Resp BP Pulse Ox 97.9 F 51 L 20 106/63 95 07/05/18 07:54 07/05/18 07:54 07/05/18 07:54 07/05/18 07:54 07/05/18 07:54 Laboratory Results - last 24 hr 07/04/18 14:40: WBC 6.8, RBC 4.24 L, Hgb 13.1 L, Hct 42.8, MCV 101.0 H, MCH 30.9 , MCHC 30.5 L, RDW 14.6, Plt Count 149, MPV 8.2, Neut % (Auto) 71.7, Lymph % ( Auto) 13.2, Evangeline % (Auto) 10.3 H, Eos % (Auto) 4.4, Baso % (Auto) 0.4, Neut # ( Auto) 4.9, Lymph # (Auto) 0.9, Evangeline # (Auto) 0.7, Eos # (Auto) 0.3, Baso # (Auto ) 0.0 07/04/18 14:40: D-Dimer 485 H* 07/04/18 14:40: Sodium 139, Potassium 4.3, Chloride 96 L, Carbon Dioxide 47 H*, Anion Gap 0.3 L, BUN 36 H, Creatinine 1.13, Estimated Creat Clear 72, Estimated GFR 62, Est GFR ( Amer) 75, Glucose 95, Calcium 9.2, Troponin I < 0.02 07/04/18 14:40: Lactate 1.1 07/04/18 14:40: B-Natriuretic Peptide 85 07/04/18 14:45: Total Bilirubin 0.5, Direct Bilirubin 0.2, Indirect Bilirubin 0.3, AST 11 L, ALT 19, Alkaline Phosphatase 78, Total Protein 6.8, Albumin 3.4 07/04/18 16:04: Specimen Source Right radial, O2 % 2l, ABG pH 7.35, ABG pCO2 68.5 H, ABG pO2 95.0, ABG HCO3 36.5 H, ABG Total CO2 38.6 H, ABG O2 Saturation 97, ABG Base Excess 10.9 H, Josh Test Acceptable 07/04/18 17:45: Urine Color Yellow, Urine Appearance Cloudy, Urine pH 6.5, Ur Specific [place] 1.010, Urine Protein Negative, Urine Glucose (UA) Negative, Urine Ketones Negative, Urine Blood Negative, Urine Nitrate Negative, Urine Bilirubin Negative, Urine Urobilinogen 1.0, Ur Leukocyte Esterase 2+ A, Urine RBC None, Urine WBC 20-50, Ur Squamous Epith Cells 3-5, Urine Bacteria 4+ 07/04/18 18:40: PT 12.7 H, INR 1.24 H 07/05/18 05:41: WBC 5.4, RBC 4.06 L, Hgb 12.5 L, Hct 40.8 L, MCV 100.5 H, MCH 30.8, MCHC 30.7 L, RDW 14.6, Plt Count 112 L, MPV 7.5, Neut % (Auto) 63.0, Lymph % (Auto) 17.7, Evangeline % (Auto) 13.2 H, Eos % (Auto) 5.5, Baso % (Auto) 0.7, Neut # (Auto) 3.4, Lymph # (Auto) 1.0, Evangeline # (Auto) 0.7, Eos # (Auto) 0.3, Baso # (Auto) 0.0 07/05/18 05:41: Sodium 139, Potassium 4.5, Chloride 99, Carbon Dioxide 43 H*, Anion Gap 1.5 L, BUN 31 H, Creatinine 0.94, Estimated Creat Clear 82, Estimated GFR 77, Est GFR ( Amer) 93 D, Glucose 75 D, Calcium 8.9 I & O for Last 24 hours: Intake & Output 07/02/18 07/03/18 07/04/18 07/05/18 11:59 11:59 11:59 11:59 Intake Total 1040 / 1040 Balance 1040 / 1040 Weight 219 lb 5 oz Microbiology Reports for the Last 24 Hours: Microbiology 07/04/18 15:20 Sputum - Expectorated Sputum Gram Stain - Final 07/04/18 15:20 Sputum - Expectorated Sputum Sputum Culture - Preliminary Gram Negative Rods 07/04/18 17:45 Urine,Clean Catch Urine Culture - Preliminary Gram Negative Rods Narrative: Patient is pleasant, alert. Minimally dyspneic. Oropharynx clear, edentulous. Well-hydrated. No scleral icterus. Lungs have thick rhonchi bilaterally, with poor air movement bilaterally. Minimal crackles in both bases. Heart rate regular but exam compromised by his abnormal lung sounds. Abdomen soft and nontender. No edema clubbing in his toes. Diminished distal pulses bilaterally but they are present. Able to move all extremities well and normal power noted. Assessment and Plan (1) Acute respiratory failure with hypoxia Current visit: Yes Status: Acute Category: Medical Code(s): J96.01 - Acute respiratory failure with hypoxia Increased pulmonary toilet. Overall poor prognosis. Patient is DNR. Will respect this. (2) COPD exacerbation Current visit: Yes Status: Acute Category: Medical Code(s): J44.1 - Chronic obstructive pulmonary disease with (acute) exacerbation See above notes. Pseudomonas coverage. Gram-negative rods in sputum noted. (3) End stage COPD Current visit: Yes Status: Acute Category: Medical Code(s): J44.9 - Chronic obstructive pulmonary disease, unspecified (4) Hypercarbia Current visit: Yes Status: Acute Category: Medical Code(s): R06.89 - Other abnormalities of breathing BiPAP as needed. (5) UTI (urinary tract infection) Current visit: Yes Status: Acute Category: Medical Code(s): N39.0 - Urinary tract infection, site not specified Gram-negative rods in urine. Await culture results. Pseudomonas coverage needed.
[2018-07-06 07:27] LABS: INR 1.13 (0.9-1.1); Prothrombin Time 11.6 seconds (9.4-11.8)
--- NOTE | 2018-07-06 08:05 | Progress Note ---
Internal Medicine - PN: Subj *Date: 07/06/18 *Time: 07:30 Interval history: Patient states "my joints hurt." Reports shortness of breath has improved. No urinary symptoms. Appetite is good, no nausea or vomiting. Alert and oriented x3. Rate and rhythm regular. Lung sounds with scattered rhonchi and wheezes throughout. Abdomen soft and nontender. No LE edema. No neuro deficits. Exam Vital signs and Labs for Last 24 Hours: Temp Pulse Resp BP Pulse Ox 97.4 F L 97 H 20 87/48 91 L 07/06/18 07:55 07/06/18 07:55 07/06/18 07:55 07/06/18 07:55 07/06/18 07:55 Laboratory Results - last 24 hr 07/06/18 06:16: PT 11.6, INR 1.13 H I & O for Last 24 hours: Intake & Output 07/03/18 07/04/18 07/05/18 07/06/18 11:59 11:59 11:59 11:59 Intake Total 1190 / 1190 3020 / 3020 Output Total 202 / 202 Balance 1190 / 1190 2818 / 2818 Weight 219 lb 5 oz 219 lb 4.983 oz Microbiology Reports for the Last 24 Hours: Microbiology 07/04/18 17:45 Urine,Clean Catch Urine Culture - Final Escherichia coli 07/04/18 15:20 Sputum - Expectorated Sputum Gram Stain - Final 07/04/18 15:20 Sputum - Expectorated Sputum Sputum Culture - Preliminary Escherichia coli Assessment and Plan (1) Acute respiratory failure with hypoxia Current visit: Yes Status: Acute Category: Medical Code(s): J96.01 - Acute respiratory failure with hypoxia (2) COPD exacerbation Current visit: Yes Status: Acute Category: Medical Code(s): J44.1 - Chronic obstructive pulmonary disease with (acute) exacerbation (3) End stage COPD Current visit: Yes Status: Acute Category: Medical Code(s): J44.9 - Chronic obstructive pulmonary disease, unspecified (4) Hypercarbia Current visit: Yes Status: Acute Category: Medical Code(s): R06.89 - Other abnormalities of breathing (5) UTI (urinary tract infection) Current visit: Yes Status: Acute Category: Medical Code(s): N39.0 - Urinary tract infection, site not specified - Assessment and plan all Dx Assessment and Plan for all problems:: Urine and sputum culture revealed a fairly resistant E. Coli. Antibiotics changed to Invanz. High probability to bacteremia, blood cultures pending. He has become progressively hypotensive, asymptomatic. Lisinopril stopped. Hospice consult today
--- NOTE | 2018-07-06 11:26 | Cardiology Report ---
PROCEDURE: 2-D M-mode and color Doppler study INDICATIONS FOR THE TEST: Chest pain COPD + Heart Murmur Tobacco Smoking+ Palpitations Fatigue Syncope Edema+ Hypertension+Diabetes Mellitus Rheumatic Fever SOB+FAY Obesity Hyperlipidemia+ Family History HD Additional History DNR, COR PULMON[place], HOME O2, AFIB, CHF, CABG, STNETS PATIENT INFORMATION HEIGHT: 74 WEIGHT:220 GENDER: Male B/P:140/60 2-D/M-MODE INTERPRETATION: 2-D MEASUREMENTS OBSERVED VALUES IN CMS Right Ventricular Dimension (RVDd) 4.1 Interventricular Septum (Thickness)(IVsd) 1.6 Left Ventricular Internal Dimensions(LVIDd) 5.2 Left Ventricular Posterior Wall (Thickness)(LVPWd) 1.0 Aortic Root 4.1 Aortic Cusp Separation 1.9 Left Atrial Dimensions (LAD) 5.3 2D 1. Left atrium is moderately enlarged, left ventricle is normal size, mild concentric left ventricular hypertrophy, visually estimated ejection fraction approximately 50% with no obvious regional wall motion abnormality. 2. The right atrium and right ventricle are moderately enlarged, contractility of the right ventricle is preserved. 3. The aortic valve is thickened and calcified leaflet continue to display mobility. 4. The mitral and tricuspid valve leaflets are minimally thickened. 5. The pulmonic valve is poorly visualized. 6. No significant pericardial effusion noted. DOPPLER INTERROGATION: Doppler interrogation of the aortic, mitral and tricuspid valvular presence of trace aortic, mild mitral and tricuspid regurgitation, calculated right ventricular systolic pressure 55 mmHg consistent with moderate pulmonary hypertension, diastolic parameters are inconclusive. CONCLUSION: 1. Moderately biatrial enlargement, normal left ventricular size, visually estimated ejection fraction 50-55%, there is abnormal septal motion. Diastolic parameters are inconclusive. 2. Moderately enlarged right ventricle with normal contractility. 3. Trace aortic, mild mitral and tricuspid regurgitation, calculated right ventricular systolic pressure is 55 mmHg consistent with moderate pulmonary hypertension. 4. No significant pericardial effusion noted.
[2018-07-07 06:47] LABS: INR 1.1 (0.9-1.1); Prothrombin Time 11.3 seconds (9.4-11.8)
--- NOTE | 2018-07-07 08:15 | Discharge Summary ---
General - General Admission date:: 07/04/18 Discharge date: 07/07/18 HPI HPI: 82-year-old white male with end-stage COPD, oxygen requiring, maintains DNR status, who was admitted here with hypoxic/hypercarbic respiratory failure in March 2018, who returned to the emergency department on the day of admission with cough and congestion, found to have hypercapnia, hypoxia, consistent with COPD exacerbation with cough and congestion. Markedly abnormal chest x-ray and sputum production, admitted to hospital for pulmonary toilet, IV antibiotics. Hospital Course Hospital Course: Patient admitted to medicine service for management of altered mental status, and respiratory failure. Found to have positive respiratory and urine cultures for E. coli, ESBL. Initiated on ertapenem IV. Due to patient's multiple comorbidities and end-stage COPD, discussions were had about goals of care. Patient has support with son-in-law this days with him nightly and daughter that helps cook his meals and helps with daily care. Family and patient decided hospice was in line with patient's goals of care. Plan to transition to home hospice after completion of IV ertapenem for pneumonia and urinary tract infection. Discharged to swing bed for continuation of IV antibiotics. Objective Vital signs: Temp Pulse Resp BP Pulse Ox 98.3 F 80 20 104/66 92 L 07/07/18 04:00 07/07/18 06:48 07/07/18 04:00 07/07/18 04:00 07/07/18 06:48 - *Routine HEENT Exam Head: Present: normocephalic, atraumatic Eye: Present: EOMI, PERRL ENT: Present: mucous membranes moist - *Routine Neck Exam Present: supple, full ROM. Absent: JVD - *Routine Respiratory Exam Present: prolonged expiratory phase, wheezes, crackles (Diffuse and posterior lung gutierrez) - *Routine Cardiovascular Exam Present: RRR, Normal S1, Normal S2, murmur - *Routine Abdominal Exam Present: soft, normoactive bowel sounds. Absent: tenderness - *Routine Rectal Exam Patient deferred: visual exam - *Routine Exam Patient deferred: penile exam - *Routine Extremities Exam Absent: cyanosis, clubbing, edema - *Routine Skin Exam Present: intact. Absent: cyanosis - *Routine Neurological Exam Present: alert, oriented X3, CN II-XII intact Results Labs on day of discharge: Labs from last 24 hours 07/07/18 04:55 PT 11.3 INR 1.10 Preliminary micro results at discharge 07/04/18 14:40 Blood Culture - Preliminary Blood NO GROWTH AFTER 48 HOURS 07/04/18 14:40 Blood Culture - Preliminary Blood NO GROWTH AFTER 48 HOURS DS: Diagnosis - Discharge Diagnosis (1) Acute respiratory failure with hypoxia Status: Acute (2) COPD exacerbation Status: Acute (3) End stage COPD Status: Chronic (4) Hypercarbia Status: Acute (5) UTI (urinary tract infection) Status: Acute (6) Constipation Status: Acute Discharge Plan - Patient Discharge Instructions ACTIVITY: Continue current activity DIET: continue same diet Patient Instructions: Coumadin Vitamin K/ Diet, Coumadin Therapy Booklet - Follow up Plan Disposition: [facility] Swing Bed Home Medications: Home Medications Medication Instructions Recorded Confirmed Type Carvedilol [Carvedilol 3.125mg Tab] 3.125 mg PO BID 04/12/18 07/08/18 History Hydrocodone/Acetaminophen 1 tab PO BIDP PRN 04/12/18 07/08/18 History [Hydrocodone-Acetamin 10-325 mg] Lisinopril [Lisinopril 5mg Tablet] 5 mg PO DAILY 04/12/18 07/08/18 History Pravastatin Sodium [Pravachol 40mg 40 mg PO HS 04/12/18 07/08/18 History Tablet] Aspirin [Aspirin 81mg EC Tab] 81 mg PO DAILY 04/13/18 07/08/18 History Docusate Sodium 100 mg PO DAILY 07/10/18 07/10/18 History Sennosides 8.6 mg PO DAILY 07/10/18 07/10/18 History Warfarin Sodium [Coumadin 3mg 6 mg PO DAILY 07/10/18 07/10/18 History tablet] Prescriptions/Medication Reconciliation: New Ipratropium/Albuterol Sulfate [Duoneb 3mL neb] 3 ml IH Q4HP PRN ampul.neb PRN Reason: Shortness Of Breath Nicotine [Nicoderm 21mg/24hr patch] 21 mg TD DAILYP PRN patch.td24 PRN Reason: Nicotine Cravings Continue Carvedilol [Carvedilol 3.125mg Tab] 3.125 mg PO BID Lisinopril [Lisinopril 5mg Tablet] 5 mg PO DAILY Pravastatin Sodium [Pravachol 40mg Tablet] 40 mg PO HS Hydrocodone/Acetaminophen [Hydrocodone-Acetamin 10-325 mg] 1 tab PO BIDP PRN PRN Reason: PAIN Aspirin [Aspirin 81mg EC Tab] 81 mg PO DAILY Discontinued Furosemide [Lasix 20mg tablet] 20 mg PO DAILY Ipratropium/Albuterol Sulfate [Duoneb 3mL neb] 3 ml IH QIDP PRN PRN Reason: Shortness Of Breath B12/Levomefolate Calcium/B-6 [Foltx Tablet] 1 each PO DAILY levoFLOXacin [Levaquin 500mg tab] 500 mg PO 1100 #3 tab Warfarin Sodium 5.5 mg PO DAILY No Action Docusate Sodium 100 mg PO DAILY Sennosides 8.6 mg PO DAILY Warfarin Sodium [Coumadin 3mg tablet] 6 mg PO DAILY - Additional Information Additional Information: Admitting to swing bed. Prognosis and rehab potential poor.
[2018-07-07 08:18] VITALS: BP 108/63
== END 2018-07-07 17:32 | disposition swing bed (61) ==
LOC: ER 14:15 → 2ND 14:15
PROVIDERS: ADMIT Internal Medicine Adolescent Medicine; ATTEND Internal Medicine Adolescent Medicine

== ENCOUNTER 2018-07-07 17:32 | Inpatient (IN) ==
--- NOTE | 2018-07-08 09:40 | Pharmacy Consult Notes ---
[facility] Pharmacy VTE Monitoring - Patient Demographics Admission date: 07/07/18 Report Date: 07/08/18 Time: 09:40 Allergies/Adverse Reactions: Patient Allergies Penicillins Allergy (Intermediate, Verified 04/12/18 19:20) Difficulty Breathing Height: 1.88 cm Weight: 99.47 kg Patient Problems: Current Active Problems E. coli pneumonia (Acute) E. coli UTI (Acute) - VTE Risk Was VTE Risk Assessment Performed: Yes VTE Score: 5 VTE Risk Level: Low Risk - Prophylaxis VTE Prophylaxis Ordered?: Yes Types of VTE Prophylaxis: Pharmacological Pharmacologic Type: Warfarin - VTE Diagnosis Confirmed Treatment or plan recommended: Continue Current Treatment
[2018-07-08 10:57] LABS: INR 1.13 (0.9-1.1); Prothrombin Time 11.6 seconds (9.4-11.8)
--- NOTE | 2018-07-09 08:49 | Progress Note ---
Internal Medicine - PN: Subj *Date: 07/09/18 *Time: 08:47 Interval history: Patient remains in swing bed. Did accidentally pull out his IV from the right antecubital area. Still has an IV in the left side. Complains today of throat pain, states that "it feels like a file is in my throat." Exam Vital signs and Labs for Last 24 Hours: Temp Pulse Resp BP Pulse Ox 97.6 F 95 H 18 99/54 91 L 07/09/18 07:50 07/09/18 07:50 07/09/18 07:50 07/09/18 07:50 07/09/18 07:50 Laboratory Results - last 24 hr 07/08/18 10:15: PT 11.6, INR 1.13 H I & O for Last 24 hours: Intake & Output 07/06/18 07/07/18 07/08/18 07/09/18 11:59 11:59 11:59 11:59 Intake Total 1620 / 1620 Output Total 1050 / 1050 Balance 570 / 570 Weight 219 lb 4.701 oz Narrative: Patient is alert. Pleasant. Oropharynx is slightly erythematous. Some postnasal drainage. Lungs have good air movement, lots of rhonchi as previously. Heart rate regular. Abdomen soft and nontender. Assessment and Plan (1) E. coli pneumonia Current visit: Yes Status: Acute Category: Medical Code(s): J15.5 - Pneumonia due to Escherichia coli (2) E. coli UTI Current visit: Yes Status: Acute Category: Medical Code(s): N39.0 - Urinary tract infection, site not specified; B96.20 - Unspecified Escherichia coli [E. coli] as the cause of diseases classified elsewhere (3) Acute respiratory failure with hypoxia Current visit: No Status: Acute Category: Medical Code(s): J96.01 - Acute respiratory failure with hypoxia (4) COPD exacerbation Current visit: No Status: Acute Category: Medical Code(s): J44.1 - Chronic obstructive pulmonary disease with (acute) exacerbation (5) Community acquired pneumonia Current visit: No Status: Acute Qualifiers: Laterality: unspecified laterality Qualified Code(s): J18.9 - Pneumonia, unspecified organism Category: Medical Code(s): J18.9 - Pneumonia, unspecified organism (6) DNR (do not resuscitate) Current visit: No Status: Acute Category: Medical Code(s): Z66 - Do not resuscitate (7) End stage COPD Current visit: No Status: Chronic Category: Medical Code(s): J44.9 - Chronic obstructive pulmonary disease, unspecified - Assessment and plan all Dx Assessment and Plan for all problems:: Continue current therapy, continue palliative care. Transition to home hospice in the next couple of days. Chloraseptic for throat discomfort.
[2018-07-09 09:15] LABS: INR 1.17 (0.9-1.1)
[2018-07-10 08:38] LABS: INR 1.24 (0.9-1.1); Prothrombin Time 12.7 seconds (9.4-11.8)
--- NOTE | 2018-07-12 08:05 | Discharge Summary ---
General - General Admission date:: 07/07/18 Discharge date: 07/12/18 HPI HPI: HPI admission to acute care: 82-year-old white male with end-stage COPD, oxygen requiring, maintains DNR status, who was admitted here with hypoxic/hypercarbic respiratory failure in March 2018, who returned to the emergency department on the day of admission with cough and congestion, found to have hypercapnia, hypoxia, consistent with COPD exacerbation with cough and congestion. Markedly abnormal chest x-ray and sputum production, admitted to hospital for pulmonary toilet, IV antibiotics. Hospital Course in acute care: Patient admitted to medicine service for management of altered mental status, and respiratory failure. Found to have positive respiratory and urine cultures for E. coli, ESBL. Initiated on ertapenem IV. Due to patient's multiple comorbidities and end-stage COPD, discussions were had about goals of care. Patient has support with son-in-law this days with him nightly and daughter that helps cook his meals and helps with daily care. Family and patient decided hospice was in line with patient's goals of care. Plan to transition to home hospice after completion of IV ertapenem for pneumonia and urinary tract infe ction. Discharged to swing bed for continuation of IV antibiotics. Hospital Course Hospital Course: Patient was admitted to swing bed as noted. He finished up Invanz, and did well with this. Condition remained unchanged. This morning he will be discharged home with hospice care and follow-up with his regular physician to monitor his ongoing end-stage/terminal COPD. Objective Vital signs: Temp Pulse Resp BP Pulse Ox 98.0 F 78 20 115/80 94 L 07/12/18 07:57 07/12/18 07:57 07/12/18 07:57 07/12/18 07:57 07/12/18 07:57 Narrative: Is pleasant and alert, oriented 3. Oropharynx clear. No JVD. Poor air movement but symmetric in the anterior lung gutierrez. Lots of rhonchi. Heart regular. Abdomen soft, clean and his nails but no edema or cyanosis. DS: Diagnosis - Discharge Diagnosis (1) E. coli pneumonia Status: Resolved (2) E. coli UTI Status: Resolved (3) Acute respiratory failure with hypoxia Status: Resolved (4) COPD exacerbation Status: Chronic (5) Community acquired pneumonia Status: Resolved (6) DNR (do not resuscitate) Status: Chronic (7) End stage COPD Status: Chronic Discharge Plan - Patient Discharge Instructions ACTIVITY: Continue current activity DIET: continue same diet - Follow up Plan Follow up with: Unruly Lewis [Referring] - Disposition: Hospice - Home Home Medications: Home Medications Medication Instructions Recorded Confirmed Type Carvedilol [Carvedilol 3.125mg Tab] 3.125 mg PO BID 04/12/18 07/08/18 History Hydrocodone/Acetaminophen 1 tab PO BIDP PRN 04/12/18 07/08/18 History [Hydrocodone-Acetamin 10-325 mg] Lisinopril [Lisinopril 5mg Tablet] 5 mg PO DAILY 04/12/18 07/08/18 History Pravastatin Sodium [Pravachol 40mg 40 mg PO HS 04/12/18 07/08/18 History Tablet] Aspirin [Aspirin 81mg EC Tab] 81 mg PO DAILY 04/13/18 07/08/18 History Docusate Sodium 100 mg PO DAILY 07/10/18 07/10/18 History Sennosides 8.6 mg PO DAILY 07/10/18 07/10/18 History Warfarin Sodium [Coumadin 3mg 6 mg PO DAILY 07/10/18 07/10/18 History tablet] Prescriptions/Medication Reconciliation: Continue Carvedilol [Carvedilol 3.125mg Tab] 3.125 mg PO BID Lisinopril [Lisinopril 5mg Tablet] 5 mg PO DAILY Pravastatin Sodium [Pravachol 40mg Tablet] 40 mg PO HS Hydrocodone/Acetaminophen [Hydrocodone-Acetamin 10-325 mg] 1 tab PO BIDP PRN PRN Reason: PAIN Ipratropium/Albuterol Sulfate [Duoneb 3mL neb] 3 ml IH Q4HP PRN ampul.neb PRN Reason: Shortness Of Breath Nicotine [Nicoderm 21mg/24hr patch] 21 mg TD DAILYP PRN patch.td24 PRN Reason: Nicotine Cravings Docusate Sodium 100 mg PO DAILY Sennosides 8.6 mg PO DAILY Aspirin [Aspirin 81mg EC Tab] 81 mg PO DAILY Warfarin Sodium [Coumadin 3mg tablet] 6 mg PO DAILY
== END 2018-07-12 12:42 | disposition hospice, home (50) ==
LOC: 2ND 17:32
PROVIDERS: ADMIT Internal Medicine Adolescent Medicine; ATTEND Internal Medicine Adolescent Medicine
CPT/HCPCS: 36415; 85610; 86580; 94640; 94761; J1335